=== PATIENT | female | born 1985 | race Caucasian/White ===

== ENCOUNTER → 2019-07-23 | Outpatient (CLI) | payer OTHER ==
[2019-07-23 14:28] LABS: BASO % 0.7 % (0.0-1.0); EOS # 0.1 10^3/uL (0.0-0.5); EOS % 1.4 % (0.0-3.0); HEMATOCRIT 37.4 % (36.0-47.0); HEMOGLOBIN 12.6 g/dl (12.0-15.5); LYMPH # 1.6 10^3/uL (1.5-5.0); LYMPH % 28.2 % (24.0-44.0); MEAN CORPUSCULAR HEMOGLOBIN 30.3 pg (27.0-33.0); MEAN CORPUSCULAR HGB CONC 33.7 g/dl (32.0-36.5); MEAN CORPUSCULAR VOLUME 89.9 fl (80.0-96.0); MONO # 0.5 10^3/uL (0.0-0.8); MONO % 9.5 % (0.0-5.0); NEUTROPHILS # 3.3 10^3/uL (1.5-8.5); NEUTROPHILS % 59.7 % (36.0-66.0); PLATELET COUNT, AUTOMATED 264 10^3/uL (150-450); RED BLOOD COUNT 4.16 10^6/uL (4.00-5.40); WHITE BLOOD COUNT 5.6 10^3/uL (4.0-10.0)
[2019-07-23 15:04] LABS: ALT/SGPT 22 U/L (12-78); BILIRUBIN,TOTAL 0.7 MG/DL (0.2-1.0); BLOOD UREA NITROGEN 10 MG/DL (7-18); CALCIUM LEVEL 8.8 MG/DL (8.5-10.1); CARBON DIOXIDE LEVEL 27 MEQ/L (21-32); CHLORIDE LEVEL 106 MEQ/L (98-107); CREATININE FOR GFR 0.65 MG/DL (0.55-1.30); FREE T4 1.04 NG/DL (0.76-1.46); GLOMERULAR FILTRATION RATE > 60.0 (>60); GLUCOSE, FASTING 75 MG/DL (70-100); POTASSIUM SERUM 3.9 MEQ/L (3.5-5.1); SODIUM LEVEL 137 MEQ/L (136-145); THYROID STIMULATING HORMONE 0.568 uIU/ML (0.358-3.740); TOTAL 25(OH) VITAMIN D 15.7 NG/ML (30.0-100.0); TOTAL PROTEIN 7.4 GM/DL (6.4-8.2); VITAMIN B12 LEVEL 555 PG/ML
[2019-07-23 15:24] LABS: FOLATE 16.9 NG/ML
== END ==
LOC: M LRY 11:25
PROVIDERS: ATTEND Physician Assistant
DX: Z13.29 Encounter for screening for other suspected endocrine disorder (principal)

== ENCOUNTER → 2019-09-12 | Outpatient (CLI) | payer OTHER ==
--- NOTE | 2019-09-12 14:25 | REP ---
REASON FOR EXAM: Status post posterior fusion L5 and S1. COMPARISON: 05/30/2019 without bending views. Vertebral body height and alignment is unchanged. The disc spaces are unchanged. Posterior fixation again seen with transpedicular screws seen bilaterally at L5 and S1, unchanged. There is an unchanged L5-S1 disc spacer. The bending views show no significant change in alignment. IMPRESSION: Postoperative changes and findings as described above. Electronically Signed by Chai Sanches DO 09/12/2019 04:10 P
== END ==
LOC: M LRY 12:41
PROVIDERS: ATTEND Physician Assistant
DX: M54.5 Low back pain (principal); Z98.1 Arthrodesis status

== ENCOUNTER → 2019-11-21 | Outpatient (CLI) | payer OTHER ==
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
== END ==
LOC: M PAIN 14:45
PROVIDERS: ATTEND Anesthesiology
DX: M96.1 Postlaminectomy syndrome, not elsewhere classified (principal); M43.06 Spondylolysis, lumbar region

== ENCOUNTER → 2020-03-04 | Outpatient (CLI) | payer OTHER ==
--- NOTE | 2020-03-08 14:12 | ECWPNPC ---
PATIENT NAME: GORDY SRIVASTAVA : 1985 GENDER: FEMALE VISIT DATE: 03/04/2020 DISCHARGE DATE: 03/04/20 1012 VISIT LOCKED DATE TIME: PHYSICIAN: HERBERTH ERWIN RESOURCE: HERBERTH ERWIN REASON FOR APPOINTMENT 1. BACK PAIN HISTORY OF PRESENT ILLNESS DEPRESSION SCREENING: PHQ-2 (2015 EDITION) LITTLE INTEREST OR PLEASURE IN DOING THINGS?NOT AT ALL FEELING DOWN, DEPRESSED, OR HOPELESS?NOT AT ALL TOTAL SCORE0 34-YEAR-OLD FEMALE IN FOR CHRONIC PAIN FOLLOW-UP. SHE FEELS HER MEDICATIONS ARE HELPFUL AND DENIES MED SIDE EFFECTS AT THIS TIME. SHE RATES HER PAIN CURRENTLY AT AN 8 OUT OF 10 AND DESCRIBES IT ACHING. GENERAL: -. FALL RISK SCREENING: SCREENING :NO FALLS REPORTED IN THE LAST YEAR PAIN SCREENING: PATIENT HAS A COMPLAINT OF ACUTE OR CHRONIC PAIN :YES LOCATION OF PAIN:LOW BACK INTENSITY OF PAIN (SCALE OF 1 TO 10):8 WHAT DOES YOUR PAIN FEEL LIKE:ACHING DURATION:CONTINOUS, AWAKENS FROM SLEEP PAIN IS INCREASED BY:ACTIVITIES PAIN IS DECREASED BY:USE OF PAIN MEDICATIONS NURSING NOTE: -. PAIN CENTER INTAKE QUESTIONS: DO YOU HAVE A HISTORY OF MRSA? :NO DO YOU TAKE A BLOOD THINNERS? :NO DO YOU HAVE ANY BLEEDING DISORDERS? :NO ANY NEW NUMBNESS OR WEAKNESS IN YOUR LEGS OR ARMS? :NO ANY PACEMAKER,DEFIBRILLATOR, OR DORSAL COLUMN STIMULATOR? :NO DO YOU HAVE ANY RASHES OR OPEN SORES? :NO ARE YOU ALLERGIC TO IV DYE? :NO ARE YOU DIABETIC? :NO ANY NEW PROBLEMS WITH YOUR MEDICATIONS? :NO HAVE YOU RECEIVED A VACCINE IN THE PAST 30 DAYS? :NO DO YOU PLAN TO RECEIVE A VACCINE IN THE NEXT 21 DAYS? :NO DO YOU NEED ANY PRESCRIPTION? :NO DO YOU TAKE ANY IMMUNOSUPPRESSIVE MEDICATIONS? :NO IS THERE A CHANCE YOU COULD BE ? :NO ARE YOU BREAST FEEDING? :NO CURRENT MEDICATIONS TAKING LEXAPRO 20 MG TABLET 1 TABLET ORALLY ONCE A DAY TAKING VITAMIN D (ERGOCALCIFEROL) 50 MCG (2000 UT) CAPSULE 1 CAPSULE ORALLY ONCE A DAY TAKING XANAX 0.5 MG TABLET 1 TABLET ORALLY ONCE DAILY NEEDED TAKING TIZANIDINE HCL 2 MG TABLET 1 TABLET NEEDED ORALLY BEFORE BEDTIME MAY REPEAT IN 4 HRS MDD 2 TAKING HYDROCODONE-ACETAMINOPHEN 5-325 MG TABLET 1 TABLET NEEDED ORALLY FOR PAIN EVERY 8 HRS MDD 3 NOT-TAKING AMOXICILLIN-POT CLAVULANATE 875-125 MG TABLET 1 TABLET ORALLY EVERY 12 HRS MEDICATION LIST REVIEWED AND RECONCILED WITH THE PATIENT PAST MEDICAL HISTORY PANIC ATTACKS CROHNS DISEASE ALLERGIES MUSCLE RELAXERS: FATIGUE - SIDE EFFECTS SURGICAL HISTORY PARTIAL DISCECTOMY 2007 SPINAL FUSION - L5-S1 2018 FAMILY HISTORY FATHER: ALIVE MOTHER: ALIVE 1 SISTER(S) - HEALTHY. 1 SON(S) , 1 DAUGHTER(S) - HEALTHY. SOCIAL HISTORY GENERAL: TOBACCO USE ARE YOU A:NONSMOKER LATEX QUESTIONNAIRE LATEX ALLERGY : HAVE YOU EVER DEVELOPED ANY TYPE OF REACTION AFTER HANDLING LATEX PRODUCTS SUCH RUBBER GLOVES, CONDOMS, DIAPHRAGMS, BALLOONS, SOCKS, OR UNDERWEAR?NO LATEX ALLERGY : HAVE YOU EVER DEVELOPED ANY TYPE OF REACTION DURING OR AFTER DENTAL APPOINTMENT, VAGINAL/RECTAL EXAMINATION, SURGICAL PROCEDURE, OR ANY OTHER EXPOSURE?NO LATEX RISK : HAVE YOU EVER HAD ANY DIFFICULTY BREATHING OR HIVES AFTER EATING OR HANDLING ANY FRUITS, OR VEGETABLES; SUCH KIWI, BANANAS, STONE FRUITS, OR CHESTNUTSNO LATEX RISK : DO YOU HAVE A PREVIOUS PERSONAL HISTORY OF MORE THAN NINE SURGERIES, SPINA BIFIDA, OR REPEATED CATHERIZATIONS? NO LATEX RISK : ARE YOU FREQUENTLY EXPOSED TO LATEX PRODUCTS IN YOUR OCCUPATION?NO DATE ASKED : 03/04/2020 ALCOHOL SCREENING DID YOU HAVE A DRINK CONTAINING ALCOHOL IN THE PAST YEAR?NO POINTS0 INTERPRETATIONNEGATIVE RECREATIONAL DRUG USE DRUG USE?NO LANGUAGE LANGUAGES SPOKEN:KINYARWANDA LEARNING BARRIERS / SPECIAL NEEDS BARRIERS TO LEARNING?NO HEARING IMPAIRED?NO VISION IMPAIRED?NO COGNITIVELY IMPAIRED?NO READINESS TO LEARN?YES LEARNING PREFERENCES?NO LEARNING CAPABILITIES PRESENT?YES EMOTIONAL BARRIERS?NO SPECIAL DEVICES?NO CARGO ROUTER NEEDED?NO DOMESTIC VIOLENCE DO YOU FEEL SAFE IN YOUR ENVIRONMENT?YES PAIN CLINIC PFS, CLERGY, PUBLIC HEALTH REFERRALS HAS THE PATIENT BEEN EDUCATED REGARDING HIS/HER PLAN OF CARE?YES HAS THE PATIENT BEEN EDUCATED REGARDING PAIN, THE RISK FOR PAIN, THE IMPORTANCE OF EFFECTIVE PAIN MANAGEMENT, AND THE PAIN ASSESSMENT PROCESS?YES ADVANCE DIRECTIVE ADVANCE DIRECTIVE DISCUSSED WITH PATIENT:YES PT STATES THAT SHE DOES NOT HAVE HCP, PATIENT GIVEN HEALTH CARE PROXY INFO PACKET TO TAKE HOME. 03/04/2020 - DM HOSPITALIZATION/MAJOR DIAGNOSTIC PROCEDURE NO HOSPITALIZATION HISTORY. REVIEW OF SYSTEMS CONSTITUTIONAL: ANY RECENT FEVER NO . CHILLS NO . WEIGHT CHANGE OF UNKNOWN REASONS NO . GASTROENTEROLOGY: NEW UNEXPLAINABLE CHANGES IN BOWEL CONTROL NO . CONSTIPATION NO . GENITOURINARY: ANY NEW CHANGE IN BLADDER CONTROL? NO . NEUROLOGY: NEW ONSET DIZZINESS OR NEUROLOGICAL CHANGES NOT MENTIONED NO . NEW NUMBNESS OR PAIN PATTERNS NOT MENTIONED AND PERTINENT TO TODAY'S VISIT NO . CARDIOLOGY: NEW CHEST PRESSURE NO . NEW CHEST PAIN NO . RESPIRATORY: UNEXPLAINABLE COUGH NO . NEW SHORTNESS OF BREATH NO . VITAL SIGNS WT 149.0 LBS, HT 60 IN, BMI 29.10 INDEX, BP 116/70 MM HG, HR 70 /MIN, RR 18 /MIN, TEMP 98.1 F, OXYGEN SAT % 98%, SAFE IN ENV? (Y/N) YES, NA INITIALS AW 0943, REVIEWED BY: OCTAVIO. EXAMINATION GENERAL EXAMINATION: GENERALNO ACUTE DISTRESS, WELL NOURISHED AND HYDRATED. PSYCHAPPROPRIATE MOOD AND AFFECT . LUNGS:CLEAR TO AUSCULTATION BILATERALLY, NO WHEEZES, RHONCHI, RALES. HEART:NO MURMURS, REGULAR RATE AND RHYTHM. ASSESSMENTS LUMBAR POST-LAMINECTOMY SYNDROME - M96.1 (PRIMARY) TREATMENT LUMBAR POST-LAMINECTOMY SYNDROME NOTES: DISCUSSED CARE PLAN WITH PATIENT, PATIENT VERBALIZES UNDERSTANDING. PATIENT WAS SENT HOME WITH A HEALTHCARE PROXY INFORMATION PACKET. -TIERNEY ALVARADO CMA . CLINICAL NOTES: 34-YEAR-OLD FEMALE IN FOR CHRONIC PAIN FOLLOW-UP. GIVEN PRESENTING SYMPTOMS RECOMMENDED CONTINUATION OF CURRENT MEDICATION REGIMEN WITH FOLLOW-UP IN 3 MONTHS. THC DISCUSSED WITH PATIENT AND SHE WAS INFORMED THAT THIS CANNOT BE SEEN ON HER U TOX AND PATIENT HAS EXPRESSED UNDERSTANDING. PATIENT HAS EXPRESSED UNDERSTANDING OF AND WAS IN AGREEMENT WITH TREATMENT PLAN. GIVEN TIME TO ASK QUESTIONS AND EXPRESS CONCERNS. , ISTOP REGISTRY REVIEWED AND DEMONSTRATES COMPLLIANCE. (REF # [id number] ) BRINGS IN MEDICATIONS WHICH IS APPROPRIATE FOR WHAT WAS DISPENSED. RECENT URINE TOXICOLOGY REVIEWED. NO UNAUTHORIZED MEDICATIONS. NO ILLICIT SUBSTANCES AND PRESCRIBED MEDICATIONS WERE PRESENT. PROCEDURE CODES FA211 ESTABILISHED PATIENT [facility] FACILITY CHARGE DISPOSITION & COMMUNICATION FOLLOW UP 3 MONTHS (REASON: CHRONIC BACK PAIN) ELECTRONICALLY SIGNED BY BOUCHRA LEACH ON 03/08/2020 AT 10:27 AM EDT DISCLAIMER : THIS IS A VISIT SUMMARY EXTRACTED FROM THE [employer] CHART. IT IS NOT A COPY OF THE [employer] PROGRESS NOTE. MONIQUE
== END ==
LOC: M PAIN 09:30
PROVIDERS: ATTEND Family Medicine
DX: M96.1 Postlaminectomy syndrome, not elsewhere classified (principal); Z86.59 Personal history of other mental and behavioral disorders; Z88.8 Allergy status to other drugs, medicaments and biological substances; Z79.899 Other long term (current) drug therapy

== ENCOUNTER → 2020-06-29 | Outpatient (REF) | payer OTHER | LOC: M PLALAB 15:15 | PROVIDERS: ATTEND Advanced Practice Midwife | DX: O36.80X0 Pregnancy with inconclusive fetal viability, not applicable or unspecified (principal) ==

== ENCOUNTER 2020-07-05 11:35 | Emergency (ER) | payer OTHER ==
[~2020-07-05] VITALS: Ht 152.4 cm; Wt 65.4 kg
--- OUTSIDE RECORDS SUMMARY | 2020-07-05 11:44 | CCD | Continuity of Care Document ---
Author Author Radha SANCHEZ Organization Unknown Address [place] [address] Phone [phone] Care Team Providers Care Physical Testing Supervisor Name Role Phone Otilia Euceda D.O. AUTM Micah Prince MD AUTM [phone] Trenton Coker MD AUTM [phone] Problems Active Problems Provider Date Crohn's disease of small AND large intestines CASEY Quintero Onset: 05/21/2019 Lumbar spine ankylosis CASEY Gan Onset: 05/21/2019 Panic disorder without agoraphobia CASEY Gan Onset : 05/21/2019 Mild recurrent major depression CASEY Gan Onset: 0 05/21/2019 Social History Type Date Description Comments Sex Unknown Tobacco Use Start: Unknown End: Quit ETOH Use Denies alcohol use Tobacco Use Start: Unknown End: Unknown Patient is a former smoker Recreational Drug Use Denies Drug Use Exercise Type/Frequency Does not exercise Sun Exposure Does not use sunscreen Seat Belt/Car Seat Always uses seat belt Allergies, Adverse Reactions, Alerts Active Allergies Reaction Severity Comments Date Tramadol Hives 09/18/2019 Inactive Allergies NKDA 04/29/2019 Medications Active Medications SIG Qnty Indications Ordering Provide r Date Low Iron 27-0.8mg Tablets take one tablet by mouth daily. 90tabs Z3A.01 Vasquez KooOBolivar 05/27/2020 Sertraline HCL 50mg Tablets 1 by mouth every day 90tabs F33.0 Vasquez KooOBolivar 05/27 Vitamin D3 25mcg (1000 Ut) Capsule s 1 by mouth every day Unknown Vitamin B 12 500mcg Tablets 1 by mouth every day Unknown History Medications Tizanidine HCL 4mg Tablets 1 tablet by mouth every 8 hours as needed for pain/ spasms Flores alesha Euceda D.O. 05/27/2020 - 05/27/2020 Tizanidine HCL 2mg Capsules take one tablet by mouth every 8 hours as needed for muscle spasm Linacaps Otilia Nathaly Padilla D.O. 01/21/2020 - 05/27/2020 Immunizations Description No Information Available Vital Signs Date Vital Result Comment 05/27/2020 10:32am BP Systolic 122 mmHg BP Diastolic 82 mmHg Height 61 inches 5'1" Weight 140.25 lb BMI (Body Mass Index) 26.5 kg/m2 Heart Rate 81 /min Respiratory Rate 18 /min Body Temperature 99.1 F O2 % BldC Oximetry 98 % [place] Body Weight 105 lb 01/21/2020 9:54am BP Systolic 108 mmHg BP Diastolic 80 mmHg Height 61 inches 5'1" Weight 143.38 lb BMI (Body Mass Index) 27.1 kg/m2 Heart Rate 63 /min Respiratory Rate 16 /min Body Temperature 98.5 F O2 % BldC Oximetry 100 % [place] Body Weight 105 lb Results Test Acquired Date Facility Test Result H/L Range Note Laboratory test finding 05/27/2020 Inhouse Inhouse Urine positive Procedures Description No Information Available Medical Devices Description No Information Available Encounters Type Date Location Provider Dx Diagnosis Office Visit 05/27/2020 10:20a [facility] CASEY Gan Z3A.01 Less than 8 weeks gestation of Z33.1 state, incidental M43.26 Fusion of spine, lumbar bonnie on F33.0 Major depressive disorder, r ecurrent, mild Office Visit 01/21/2020 9:30a [facility] CASEY Gan M43.26 Fusion of spine, lumbar bonnie on F33.0 Major depressive disorder, r ecurrent, mild F41.0 Panic disorder [episodic par oxysmal anxiety] K50.80 Crohn's disease of both smal l and lg int w/o complications Assessments Date Code Description Provider 05/27/2020 Z3A.01 Less than 8 weeks gestation of alcides he CASEY Gan 05/27/2020 Z33.1 state, incidental Jagdish CASEY Weaver 05/27/2020 M43.26 Fusion of spine, lumbar region M CASEY Capps 05/27/2020 F33.0 Major depressive disorder, recur rent, mild CSAEY Gan 01/21/2020 M43.26 Fusion of spine, lumbar region M CASEY Capps 01/21/2020 F33.0 Major depressive disorder, recur rent, mild CASEY Gan 01/21/2020 F41.0 Panic disorder [episodic paroxys mal anxiety] CASEY Gan 01/21/2020 K50.80 Crohn's disease of b oth small and large intestine without complications CASEY Gan Plan of Treatment Future Appointment(s):* 07/20/2020 10:20 am - CASEY Gan at [facility] Functional Status Description No Information Available Mental Status Description No Information Available Referrals Refer to Reason for Referral Status Appt Date Trenton Coker MD A2. LMP is 04/26/20. She is looking to establish follow up OB care. [facility] [address] [place] [id number] [phone]
--- OUTSIDE RECORDS SUMMARY | 2020-07-05 11:44 | CCD | Continuity of Care Document ---
Author Author Radha SANCHEZ Organization Unknown [place] [address] Phone [phone] Care Team Providers Care Corn Grinder Name Role Phone Otilia Euceda D.O. AUTM [phone] Micah Prince MD AUTM [phone] Trenton Coker MD AUTM [phone] Problems Active Problems Provider Date Crohn's disease [...] Available Vital Signs Date Vital Result Comment 06/04/2020 11:28am BP Systolic 124 mmHg BP Diastolic 78 mmHg Height 61 inches 5'1" Weight 141.00 lb BMI (Body Mass Index) 26.6 kg/m2 Heart Rate 82 /min Respiratory Rate 16 /min Body Temperature 98.8 F O2 % BldC Oximetry 99 % [place] Body Weight 105 lb 05/27/2020 10:32am BP Systolic 122 mmHg BP Diastolic 82 mmHg Height 61 inches 5'1" Weight 140.25 lb BMI (Body Mass Index) 26.5 kg/m2 Heart Rate 81 /min Respiratory Rate 18 /min Body Temperature 99.1 F O2 % BldC Oximetry 98 % [place] Body Weight 105 lb Results Test Acquired Date Facility Test Result H/L Range Note Laboratory test finding 05/27/2020 Inhouse Inhouse Urine positive Procedures Description No Information Available Medical Devices Description No Information Available Encounters Type Date Location Provider Dx Diagnosis Office Visit 05/27/2020 10:20a [facility] CASEY Swift Z3A.01 Less than 8 weeks gestation of Z33.1 state, incidental M43.26 Fusion of spine, lumbar bonnie on F33.0 Major depressive disorder, r ecurrent, mild Office Visit 01/21/2020 9:30a [facility] CASEY Gan M43.26 Fusion of spine, lumbar bonnie on F33.0 Major depressive disorder, r ecurrent, mild F41.0 Panic disorder [episodic par oxysmal anxiety] K50.80 Crohn's disease of both smal l and lg int w/o complications Assessments Date Code Description Provider 06/04/2020 Z01.818 Encounter for other preprocedura l examination CASEY Gan 06/04/2020 K02.3 Arrested dental caries CASEY Huerta 05/27/2020 Z3A.01 Less than 8 weeks gestation of alcides he CASEY Gan 05/27/2020 Z33.1 state, incidental Jagdish CASEY Weaver 05/27/2020 M43.26 Fusion of spine, lumbar region M CASEY Capps 05/27/2020 F33.0 Major depressive disorder, recur rent, mild CASEY Gan 01/21/2020 M43.26 Fusion of spine, lumbar region M CASEY Cpaps 01/21/2020 F33.0 Major depressive disorder, recur rent, mild CASEY Gan 01/21/2020 F41.0 Panic disorder [episodic paroxys mal anxiety] CASEY Gan 01/21/2020 K50.80 Crohn's disease of b oth small and large intestine without complications CASEY Gan Plan of Treatment Future Appointment(s):* 07/20/2020 10:20 am - CASEY Gan at [facility] 06/04/2020 - CASEY Gan* Z01.818 Encounter for other preprocedural examination * K02.3 Arrested dental caries Functional Status Description No Information Available Mental Status Description No Information Available Referrals Refer to Dr Reason for Referral Status Appt Date Trenton Coker MD A2. LMP is 04/26/20. She is looking to establish follow up OB care. [facility] [address] [place] [address] [phone]
--- OUTSIDE RECORDS SUMMARY | 2020-07-05 11:44 | CCD ---
Author Author [facility] Organization [facility] Address Unknown Phone Unavailable Care Team Providers Care Blood Typer Name Role Phone Daniel Garcia Unavailable PROBLEMS Type Condition ICD9-CM Code ZXO48-ES Code Onset Dates Condition S tatus SNOMED Code Notes Problem Lumbar post-laminectomy syndrome M96.1 Active 855426866 Problem Lumbar Facet arthropathy M47.816 Active 3677726 08 Problem Lumbar spondylolysis M43.06 Active 604834044 ALLERGIES Allergen (clinical drug ingredient) Drug/Non Drug Allergy do cumented on EMR Reaction Allergy Type Onset Date Status MUSCLE RELAXERS FATIGUE Non Drug Allergy Act eric ENCOUNTERS from 1985 to 2020-04-19 Encounter Location Date Provider Diagnosis [facility] [address] [place] [phone] Apr, Daniel Jose IMMUNIZATIONS No Information SOCIAL HISTORY Tobacco Use: Social History Observation Description Date Details (start date - stop date) Never Smoker Sex Assigned At : Social History Observation Description Sex Assigned At Unknown Language: Question Answer Notes Languages spoken: Croatian Alcohol Screening: Question Answer Notes Did you have a drink containing alcohol in the past year? No Points 0 Interpretation Negative Tobacco Use: Question Answer Notes Are you a: never smoker REASON FOR REFERRAL No Information VITAL SIGNS No information MEDICATIONS Medication SIG (Take, Route, Frequency, Duration) Notes Start Da te End Date Status Lexapro 20 MG 1 tablet Orally Once a day for 30 day(s) Active Xanax 0.5 MG 1 tablet Orally once daily as needed Active Vitamin D (Ergocalciferol) 50 MCG (1999 [place]) 1 capsule Orally Once a day for 30 day(s) Active Tizanidine HCl 2 MG 1 tablet as needed Orally be fore bedtime May repeat in 4 hrs MDD 2 for 30 days Nov, Active Hydrocodone-Acetaminophen 5-325 MG 1 tablet as needed Orally for pain every 8 hrs MDD 3 for 30 days Apr, Active Amoxicillin-Pot Clavulanate 875-125 MG 1 tablet Orally every 12 hrs for 10 day(s) Apr, Not-Taking PROCEDURES No Information RESULTS No Results REASON FOR VISIT refill hydrocodone MEDICAL (GENERAL) HISTORY Type Description Date Medical History PANIC ATTACKS Medical History CROHNS DISEASE Surgical History PARTIAL DISCECTOMY 2006 Surgical History SPINAL FUSION - L5-S1 2018 Goals Section No Information Health Concerns No Information MEDICAL EQUIPMENT No Information MENTAL STATUS No Information FUNCTIONAL STATUS No Information ASSESSMENTS No Information PLAN OF TREATMENT Medication Medication Name Sig Start Date Stop Date Hydrocodone-Acetaminophen 5-325 MG 1 tablet as needed Orally for pain every 8 hrs MDD 3 for 30 days Apr, Next Appt Details Provider Name:Daniel Garcia, 2020-06-10 09:30:00 AM, [address] [place], [address], Insurance Providers Payer Name Payer Address Payer Phone Insured Name Patient Relati onship to Insured Coverage Start Date Coverage End Date [place] [phone] GORDY SRIVASTAVA
--- OUTSIDE RECORDS SUMMARY | 2020-07-05 11:44 | CCD ---
Author Author [facility] Organization [facility] Address Unknown Phone Unavailable Care Team Providers Care Certified Wellness Program Manager Name Role Phone Daniel Garcia Unavailable PROBLEMS Type Condition ICD9-CM Code HSQ21-PM Code Onset Dates Condition S tatus SNOMED Code Notes Problem Lumbar post-laminectomy syndrome M96.1 Active 971843291 Problem Lumbar Facet arthropathy M47.816 Active 0281585 08 Problem Lumbar spondylolysis M43.06 Active 314064496 ALLERGIES Allergen (clinical drug ingredient) Drug/Non Drug Allergy do cumented on EMR Reaction Allergy Type Onset Date Status MUSCLE RELAXERS FATIGUE Non Drug Allergy Act eric ENCOUNTERS from 1985 to 2020-06-05 Encounter Location Date Provider Diagnosis [facility] [address] [place] [phone] May, Daniel Garcia IMMUNIZATIONS No Information SOCIAL HISTORY Tobacco Use: Social History Observation Description Date Details (start date - stop date) Never Smoker Sex Assigned At : Social History Observation Description Sex Assigned At Unknown Language: Question Answer Notes Languages spoken: Mohawk Alcohol Screening: Question Answer Notes Did you [...] 8 hrs MDD 3 for 30 days May, Active Amoxicillin-Pot Clavulanate 875-125 MG 1 tablet Orally every 12 hrs for 10 day(s) Apr, Not-Taking PROCEDURES No Information RESULTS No Results REASON FOR VISIT MEDS/ MEDICAL (GENERAL) HISTORY Type Description Date Medical [...] 8 hrs MDD 3 for 30 days May, Next Appt Details Provider Name:Daniel Garcia, 2020-06-10 09:30:00 AM, [address] [place], [address], Provider Name:Stefania Diallo, 2020-06-29 02:20:00 PM, [address] [place], [address], Insurance Providers Payer Name Payer Address Payer Phone Insured Name Patient Relati onship to Insured Coverage Start Date Coverage End Date [place] [phone] GORDY SRIVASTAVA
--- OUTSIDE RECORDS SUMMARY | 2020-07-05 11:44 | CCD ---
Author Author [facility] Organization [facility] Address Unknown Phone Unavailable Care Team Providers Care Manager Group Home Name Role Phone Daniel Garcia Unavailable PROBLEMS Type Condition ICD9-CM Code TTQ35-JP Code Onset Dates Condition S tatus SNOMED Code Notes Problem Lumbar post-laminectomy syndrome M96.1 Active 143298498 Problem Lumbar Facet arthropathy M47.816 Active 4722211 08 Problem Lumbar spondylolysis M43.06 Active 069257769 ALLERGIES Allergen (clinical drug ingredient) Drug/Non Drug Allergy do cumented on EMR Reaction Allergy Type Onset Date Status MUSCLE RELAXERS FATIGUE Non Drug Allergy Act eric ENCOUNTERS from 1985 to 2020-05-19 Encounter Location Date Provider Diagnosis [facility] [address] [place] [phone] May, Daniel Garcia IMMUNIZATIONS No Information SOCIAL [...] Information RESULTS No Results REASON FOR VISIT Vicodin Refill MEDICAL (GENERAL) HISTORY Type Description Date Medical [...] days May, Next Appt Details Provider Name:Daniel Pan Jose, 2020-06-10 09:30:00 AM, [address] [place], [address], Insurance Providers Payer Name Payer Address Payer Phone Insured Name Patient Relati onship to Insured Coverage Start Date Coverage End Date [address] [phone] GORDY SRIVASTAVA
--- OUTSIDE RECORDS SUMMARY | 2020-07-05 11:44 | CCD | Continuity of Care Document ---
Author Author Radha SANCHEZ Organization Unknown [place] [address] Phone [phone] Care Team Providers Care Assistant Winemaker Name Role Phone Otilia Euceda D.O. AUTM Micah Prince MD AUTM [phone] Trenton Coker MD AUTM [phone] Problems Active Problems Provider Date Crohn's disease [...] hours as needed for pain/ spasms Flores Euceda D.O. 05/27/2020 - 05/27/2020 Tizanidine HCL 2mg Capsules take one tablet by mouth every 8 hours as needed for muscle spasm 90caps Otilia Nathaly Padilla D.O. 01/21/2020 - 05/27/2020 Immunizations Description No Information Available Vital Signs Date Vital Result Comment 06/04/2020 11:28am BP Systolic 124 mmHg BP Diastolic 78 mmHg Height 61 inches 5'1" Weight 141.00 lb BMI (Body Mass Index) 26.6 kg/m2 Heart Rate 82 /min Respiratory Rate 16 /min Body Temperature 98.8 F O2 % BldC Oximetry 99 % [place] Body Weight 105 lb 05/27/2020 10:32am BP Systolic 122 mmHg BP Diastolic 82 mmHg Height 61 inches 5'1" Weight 140.25 lb BMI (Body Mass Index) 26.5 kg/m2 Heart Rate 81 /min Respiratory Rate 18 /min Body Temperature 99.1 F O2 % BldC Oximetry 98 % [place] Body Weight 105 lb Results Test Acquired Date Facility Test Result H/L Range Note Laboratory test finding 05/27/2020 Inhouse Inhouse Urine positive Procedures Description No Information Available Medical Devices Description No Information Available Encounters Type Date Location Provider Dx Diagnosis Office Visit 06/04/2020 11:30a [facility] CASEY Gan Z01.818 Encounter for other preproce dural examination K02.3 Arrested dental caries Z3A.01 Less than 8 weeks gestation of Z33.1 state, incidental Office Visit 05/27/2020 10:20a [facility] CASEY Gan Z3A.01 Less than 8 weeks gestation of Z33.1 state, incidental M43.26 Fusion of spine, lumbar bonnie on F33.0 Major depressive disorder, r ecurrent, mild Office Visit 01/21/2020 9:30a [facility] CASEY Gan M43.26 Fusion of spine, lumbar bonnie on F33.0 Major depressive disorder, r ecurrent, mild F41.0 Panic disorder [episodic par oxysmal anxiety] K50.80 Crohn's disease of both smal l and lg int w/o complications Assessments Date Code Description Provider 06/04/2020 Z01.818 Encounter for other preprocedura l examination CASEY Gan 06/04/2020 K02.3 Arrested dental caries CASEY Huerta 06/04/2020 Z3A.01 Less than 8 weeks gestation of p CASEY Marvin 06/04/2020 Z33.1 state, incidental CASEY Patel 05/27/2020 Z3A.01 Less than 8 weeks gestation of CASEY Guillen 05/27/2020 Z33.1 state, incidental CASEY Patel 05/27/2020 M43.26 Fusion of spine, lumbar region CASEY Saucedo 05/27/2020 F33.0 Major depressive disorder, recur rent, mild CASEY Gan 01/21/2020 M43.26 Fusion of spine, lumbar region CASEY Saucedo 01/21/2020 F33.0 Major depressive disorder, recur rent, mild CASEY Gan 01/21/2020 F41.0 Panic disorder [episodic paroxys mal anxiety] CASEY Gan 01/21/2020 K50.80 Crohn's disease of b oth small and large intestine without complications CASEY Gan Plan of Treatment Future Appointment(s):* 07/20/2020 10:20 am - CASEY Gan at [facility] 06/04/2020 - CASEY Gan* Z01.818 Encounter for other preprocedural examination* Comments:* Radha has dental caries which require removal due to pain and risk of infection. She is in her first trimester but is otherwise healthy and should not be any risk by having a local numbing agent and removal of dental ada. She is a low surgical risk and is cleared for planned procedure. * K02.3 Arrested dental caries* Comments:* Cleared to have dental ada removed. * Z3A.01 Less than 8 weeks gestation of * Comments:* Continue with OB care as scheduled, uncomplicated thus far. * Z33.1 state, incidental Functional Status Description No Information Available Mental Status Description No Information Available Referrals Refer to Reason for Referral Status Appt Date Trenton Coker MD A2. LMP is 04/26/20. She is looking to establish follow up OB care. [facility] [address] [place] [address] [phone]
--- OUTSIDE RECORDS SUMMARY | 2020-07-05 11:44 | CCD | Continuity of Care Document ---
Author Author Radha SANCHEZ Organization Unknown Address [place] [address] Phone [phone] Care Team Providers Care Attending Pathologist Name Role Phone Otilia Euceda D.O. AUTM Micah Prince MD AUTM [phone] Trenton Coker MD AUTM [phone] Problems Active Problems Provider Date Crohn's disease [...] F O2 % BldC Oximetry 98 % [place] Body Weight 105 lb 01/21/2020 9:54am BP Systolic 108 mmHg BP Diastolic 80 mmHg Height 61 inches 5'1" Weight 143.38 lb BMI (Body Mass Index) 27.1 kg/m2 Heart Rate 63 /min Respiratory Rate 16 /min Body Temperature 98.5 F O2 % BldC Oximetry 100 % [place] Body Weight 105 lb Results Test Acquired Date Facility Test Result H/L Range Note Laboratory test finding 05/27/2020 Inhouse Inhouse Urine positive Procedures Description No Information Available Medical Devices Description No Information Available Encounters Type Date Location Provider Dx Diagnosis Office Visit 05/27/2020 10:20a [facility] CASEY Gan Z3A.01 Less than 8 weeks gestation of Z33.1 state, incidental M43.26 Fusion of spine, lumbar bonnie on F33.0 Major depressive disorder, r ecurrent, mild Office Visit 01/21/2020 9:30a [facility] CASEY Gan M43.26 Fusion of spine, lumbar [...] 07/20/2020 10:20 am - CASEY Gan at [facility] Functional Status Description No Information Available Mental Status Description No Information Available Referrals Refer to Reason for Referral Status Appt Date Trenton Coker MD A2. LMP is 04/26/20. She is looking to establish follow up OB care. [facility] [address] [place] [address] [phone]
--- OUTSIDE RECORDS SUMMARY | 2020-07-05 11:44 | CCD ---
Author Author [facility] Organization [facility] Address Unknown Phone Unavailable Care Team Providers Care Log Rafter Name Role Phone Stefania Diallo Unavailable PROBLEMS Type Condition ICD9-CM Code UBW29-JR Code Onset Dates Condition S tatus W/U Status Risk SNOMED Code Notes Problem Lumbar Facet arthropathy M47.816 Active confirmed 835396213 Problem Supervision of other normal Z34.80 Ac tive confirm 844712846 Problem Lumbar spondylolysis M43.06 Active confirmed 811467340 Problem Lumbar post-laminectomy syndrome M96.1 Active conf irmed 724152787 ALLERGIES Allergen (clinical drug ingredient) Drug/Non Drug Allergy do cumented on EMR Reaction Allergy Type Onset Date Status MUSCLE RELAXERS FATIGUE Non Drug Allergy Act eric ENCOUNTERS from 1985 to 2020-07-03 Encounter Location Date Provider Diagnosis [facility] [address] [place] [address] Jun, Stefania Diallo with in conclusive viability O36.80X0 and Weeks of gestation of not specified Z3A.00 IMMUNIZATIONS No Information SOCIAL HISTORY Tobacco Use: Social History Observation Description Date Details (start date - stop date) Never Smoker Sex Assigned At : Social History Observation Description Sex Assigned At Unknown Language: Question Answer Notes Languages spoken: Anguillan Tobacco Use: Question Answer Notes Are you a: never smoker REASON FOR REFERRAL No Information VITAL SIGNS Weight 142.2 lbs Jun, Weight-kg 64.5 kg Jun, Height 60 in Jun, BMI 27.772 kg/m2 Jun, Blood pressure systolic 122 mm Hg Jun, Blood pressure diastolic 78 mm Hg Jun, MEDICATIONS Medication SIG (Take, Route, Frequency, Duration) Notes Start Da te End Date Status Amoxicillin-Pot Clavulanate 875-125 MG 1 tablet Orally every 12 hrs for 10 day(s) Apr, Not-Taking Tizanidine HCl 2 MG 1 tablet as needed Orally be fore bedtime May repeat in 4 hrs MDD 2 for 30 days Nov, Not-Taking Xanax 0.5 MG 1 tablet Orally once daily as needed Not-Taking Lexapro 20 MG 1 tablet Orally Once a day for 30 day(s) Not-Taking 27-1 MG 1 tablet Orally Once a day Active Vitamin D (Ergocalciferol) 50 MCG (1999) 1 capsule Orally Once a day for 30 day(s) Active Hydrocodone-Acetaminophen 5-325 MG 1 tablet as needed Orally for pain every 8 hrs MDD 3 for 30 days May, Not-Taking PROCEDURES No Information RESULTS No Results REASON FOR VISIT 1ST PN MEDICAL (GENERAL) HISTORY Type Description Date Medical History PANIC ATTACKS Medical History CROHNS DISEASE Medical History Chronic Back Pain Surgical History PARTIAL DISCECTOMY 2006 Surgical History SPINAL FUSION - L5-S1 2018 Surgical History Partial Colectomy 2009 Hospitalization History Childbirth Goals Section No Information Health Concerns No Information MEDICAL EQUIPMENT No Information MENTAL STATUS No Information FUNCTIONAL STATUS No Information ASSESSMENTS Encounter Date Diagnosis Assessment Notes Treatment Notes Treatm ent Clinical Notes Jun, with inconclusive viability (ICD -10 - O36.80X0) Jun, Weeks of gestation of not specified (I CD-10 - Z3A.00) PLAN OF TREATMENT Treatment Notes Test Name Order Date HCG, SERUM QUANTITATIVE 2020-06-29 Future Test Test Name Order Date HCG, SERUM QUANTITATIVE [id number] Next Appt Details 1 Week Reason:f/u sono Provider Name:Stefania Diallo, 2020-07-06 02:40:00 PM, [address] [place], [address], Follow Up:1 Weekf/u sono Insurance Providers Payer Name Payer Address Payer Phone Insured Name Patient Relati onship to Insured Coverage Start Date Coverage End Date [place] [id number] GORDY SRIVASTAVA self
--- OUTSIDE RECORDS SUMMARY | 2020-07-05 11:45 | CCD ---
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 Name Role Phone O'jacob, A Juan Francisco PA Unavailable Unavailable O'jacob, A Juan Francisco PA Unavailable Unavailable O'jacob, A Juan Francisco PA Unavailable Unavailable O'jacob, A Juan Francisco PA Unavailable Unavailable O'jacob, A Juan Francisco PA Unavailable Unavailable O'jacob, A Juan Francisco PA Unavailable Unavailable O'jacob, A Juan Francisco PA Unavailable Unavailable O'jacob, A Juan Francisco PA Unavailable Unavailable O'jacob, A Juan Francisco PA Unavailable Unavailable O'jacob, A Juan Francisco PA Unavailable Unavailable O'jacob, A Juan Francisco PA Unavailable Unavailable O'jacob, A Juan Francisco PA Unavailable Unavailable O'jacob, A Juan Francisco PA Unavailable Unavailable O'jacob, A Juan Francisco PA Unavailable Unavailable O'jacob, A Juan Francisco PA Unavailable Unavailable O'jacob, A Juan Francisco PA Unavailable Unavailable O'jacob, A Juan Francisco PA Unavailable Unavailable O'jacob, A Juan Francisco PA Unavailable Unavailable O'jacob, A Juan Francisco PA Unavailable Unavailable O'jacob, A Juan Francisco PA Unavailable Unavailable O'jacob, A Juan Francisco PA Unavailable Unavailable O'jacob, A Juan Francisco PA Unavailable Unavailable O'jacob, A Juan Francisco PA Unavailable Unavailable O'jacob, A Juan Francisco PA Unavailable Unavailable O'jacob, A Juan Francisco PA Unavailable Unavailable O'jacob, A Juan Francisco PA Unavailable Unavailable O'jacob, A Juan Francisco PA Unavailable Unavailable O'jacob, A Juan Francisco PA Unavailable Unavailable O'jacob, A Juan Francisco PA Unavailable Unavailable O'jacob, A Juan Francisco PA Unavailable Unavailable O'jacob, A Juan Francisco PA Unavailable Unavailable O'jacob, A Juan Francisco PA Unavailable Unavailable O'jacob, A Juan Francisco PA Unavailable Unavailable Felien T Rosetta PA Unavailable Unavailable Feola, T Rosetta PA Unavailable Unavailable Feola, T Rosetta PA Unavailable Unavailable Feola, T Rosetta PA Unavailable Unavailable Feola, T Rosetta PA Unavailable Unavailable Feola, T Rosetta PA Unavailable Unavailable Feola, T Rosetta PA Unavailable Unavailable Feola, T Rosetta PA Unavailable Unavailable Feola, T Rosetta PA Unavailable Unavailable Feola, T Rosetta PA Unavailable Unavailable Feola, T Rosetta PA Unavailable Unavailable Feola, T Rosetta PA Unavailable Unavailable Feola, T Rosetta PA Unavailable Unavailable Feola, T Rosetta PA Unavailable Unavailable Feola, T Rosetta PA Unavailable Unavailable Feola, T Rosetta PA Unavailable Unavailable Feola, T Rosetta PA Unavailable Unavailable Feola, T Rosetta PA Unavailable Unavailable Feola, T Rosetta PA Unavailable Unavailable Feola, T Rosetta PA Unavailable Unavailable Feola, T Rosetta PA Unavailable Unavailable Feola, T Rosetta PA Unavailable Unavailable Feola, T Rosetta PA Unavailable Unavailable Feola, T Rosetta PA Unavailable Unavailable Feola, T Rosetta PA Unavailable Unavailable Feola, T Rosetta PA Unavailable Unavailable Feola, T Rosetta PA Unavailable Unavailable Feola, T Rosetta PA Unavailable Unavailable Feola, T Rosetta PA Unavailable Unavailable Feola, T Rosetta PA Unavailable Unavailable Feola, T Rosetta PA Unavailable Unavailable Feola, T Rosetta PA Unavailable Unavailable Feola, T Rosetta PA Unavailable Unavailable Feola, T Rosetta PA Unavailable Unavailable Feola, T Rosetta PA Unavailable Unavailable Feola, T Rosetta PA Unavailable Unavailable Feola, T Rosetta PA Unavailable Unavailable Re-disclosure Warning The records that you are about to access may contain information from federally-assisted alcohol or drug abuse programs. If such information is present, then the following federally mandated warning applies: This information has been disclosed to you from records protected by federal confidentiality rules (42 CFR part 2). The federal rules prohibit you from making any further disclosure of this information unless further disclosure is expressly permitted by the written consent of the person to whom it pertains or as otherwise permitted by 42 CFR part 2. A general authorization for the release of medical or other information is NOT sufficient for this purpose. The Federal rules restrict any use of the information to criminally investigate or prosecute any alcohol or drug abuse patient.The records that you are about to access may contain highly sensitive health information, the redisclosure of which is protected by Article 27-F of the [facility] Public Health law. If you continue you may have access to information: Regarding HIV / AIDS; Provided by facilities licensed or operated by the [facility] Office of Mental Health; or Provided by the [facility] Office for People With Developmental Disabilities. If such information is present, then the following [facility] mandated warning applies: This information has been disclosed to you from confidential records which are protected by state law. State law prohibits you from making any further disclosure of this information without the specific written consent of the person to whom it pertains, or as otherwise permitted by law. Any unauthorized further disclosure in violation of state law may result in a fine or [place] health care facility sentence or both. A general authorization for the release of medical or other information is NOT sufficient authorization for further disc losure. Allergies and Adverse Reactions Type Description Substance Reaction Status Data Source(s ) Drug Allergy Drug Allergy NKDA [facility] ([facility]) Encounters Encounter Providers Location Date Indications Data Source(s ) ([facility]) [facility] OB Visit [address] [place] [address] 06/29/2020 12:00:00 AM EST eCW1 ([facility]) Outpatient Attender: Rosetta PEÑA 021 06:19:17 PM EST - 06/08/2020 07:20:39 PM EST DocuTap ([facility] ) Outpatient Attender: Juan Francisco PEÑA [facility] 06/04/2020 10:30:00 AM EST [facility] ([facility]) Unknown [address] [facility] [address] 06/01/2020 12:00:00 AM EST eCW1 ([facility]) Outpatient Attender: Juan Francisco PEÑA [facility] 05/27/2020 09:20:00 AM EST MED[facility] ([facility]) Unknown [address] [facility] [address] 05/18/2020 12:00:00 AM EST eCW1 ([facility]) Unknown [address] [facility] [address] 04/16/2020 12:00:00 AM EST eCW1 ([facility]) [place] [address] [facility] [address] 03/18/2020 12:00:00 AM EST eCW1 ([facility]) [place] [address] [facility] [address] 03/04/2020 12:00:00 AM EDT eCW1 ([facility]) [place] [address] [facility] [address] 02/18/2020 12:00:00 AM EDT eCW1 ([facility]) Outpatient Attender: Juan Francisco PEÑA [facility] 01/21/2020 09:30:00 AM EDT [facility] ([facility]) [place] [address] [facility] [address] 12/04/2019 12:00:00 AM EDT eCW1 ([facility]) [place] [address] [facility] [address] 11/21/2019 12:00:00 AM EDT eCW1 ([facility]) Outpatient Attender: Juan Francisco PEÑA [facility] 09/18/2019 02:00:00 PM EDT [facility] ([facility]) Outpatient Attender: Juan Francisco PEÑA [facility] 09/08/2019 01:00:00 PM EDT [facility] ([facility]) Outpatient Attender: Juan Francisco PEÑA [facility] 07/21/2019 10:00:00 AM EDT [facility] ([facility]) Outpatient 06/05/2019 02:05:00 PM EST [facility] Outpatient Attender: Juan Francisco PEÑA [facility] 05/21/2019 12:30:00 PM EST [facility] ([facility]) Medications Medication Brand Name Start Date Product Form Dose Route Admi nistrative Instructions Pharmacy Instructions Status Indications Reaction Description Data Source(s) Sertraline 50 MG Oral Tablet Sertraline HCL 05/27/2020 12:00:00 AM EST ORAL active [facility] ([facility]) [place] 05/27/2020 12:00:00 AM EST ORAL active [facility] ([facility]) tizanidine 4 MG Oral Tablet Tizanidine HCL 05/27/2020 12:00:00 AM EST ORAL completed [facility] ([facility]) Acetaminophen 325 MG / Hydrocodone Bobbi trate 5 MG Oral Tablet Hydrocodone- Acetaminophen 5-325 MG Hydrocodone-Acetaminophen 5-325 MG 05/18/2020 12:00:00 AM EST 1.0 {tablet_as_needed} suspended Hydrocodone-Acetaminophen 5-325 MG eCW1 ([facility]) Acetaminophen 325 MG / Hydrocodone Bobbi trate 5 MG Oral Tablet Hydrocodone- Acetaminophen 5-325 MG Hydrocodone-Acetaminophen 5-325 MG 05/18/2020 12:00:00 AM EST 1.0 {tablet_as_needed} active Hydrocodone-Acetaminophen 5-325 MG eCW1 ([facility]) Acetaminophen 325 MG / Hydrocodone Bobbi trate 5 MG Oral Tablet Hydrocodone- Acetaminophen 5-325 MG Hydrocodone-Acetaminophen 5-325 MG 05/18/2020 12:00:00 AM EST 1.0 {tablet_as_needed} active Hydrocodone-Acetaminophen 5-325 MG eCW1 ([facility]) Acetaminophen 325 MG / Hydrocodone Bobbi trate 5 MG Oral Tablet Hydrocodone- Acetaminophen 5-325 MG Hydrocodone-Acetaminophen 5-325 MG 04/19/2020 12:00:00 AM EST 1.0 {tablet_as_needed} active Hydrocodone-Acetaminophen 5-325 MG eCW1 ([facility]) Acetaminophen 325 MG / Hydrocodone Bobbi trate 5 MG Oral Tablet Hydrocodone- Acetaminophen 5-325 MG Hydrocodone-Acetaminophen 5-325 MG 03/20/2020 12:00:00 AM EST 1.0 {tablet_as_needed} active Hydrocodone-Acetaminophen 5-325 MG eCW1 ([facility]) Acetaminophen 325 MG / Hydrocodone Bobbi trate 5 MG Oral Tablet Hydrocodone- Acetaminophen 5-325 MG Hydrocodone-Acetaminophen 5-325 MG 02/18/2020 12:00:00 AM EDT 1.0 {tablet_as_needed} active Hydrocodone-Acetaminophen 5-325 MG eCW1 ([facility]) Acetaminophen 325 MG / Hydrocodone Bobbi trate 5 MG Oral Tablet Hydrocodone- Acetaminophen 5-325 MG Hydrocodone-Acetaminophen 5-325 MG 02/18/2020 12:00:00 AM EDT 1.0 {tablet_as_needed} active Hydrocodone-Acetaminophen 5-325 MG eCW1 ([facility]) tizanidine 2 MG Oral Capsule Tizanidine HCL 01/21/2020 12:00:00 AM EDT ORAL completed [facility] ([facility]) Acetaminophen 325 MG / Hydrocodone Bobbi trate 5 MG Oral Tablet Hydrocodone- Acetaminophen 5-325 MG Hydrocodone-Acetaminophen 5-325 MG 11/21/2019 12:00:00 AM EDT 1.0 {tablet_as_needed} active Hydrocodone-Acetaminophen 5-325 MG eCW1 ([facility]) tizanidine 2 MG Oral Tablet Tizanidine HCl 2 MG Tizanidine H Cl 2 MG 11/21/2019 12:00:00 AM EDT 1.0 {tablet_as_needed} active Tizanidine HCl 2 MG eCW1 ([facility]) Acetaminophen 325 MG / Hydrocodone Bobbi trate 5 MG Oral Tablet Hydrocodone- Acetaminophen 5-325 MG Hydrocodone-Acetaminophen 5-325 MG 11/21/2019 12:00:00 AM EDT 1.0 {tablet_as_needed} active Hydrocodone-Acetaminophen 5-325 MG eCW1 ([facility]) tizanidine 2 MG Oral Tablet Tizanidine HCl 2 MG Tizanidine H Cl 2 MG 11/21/2019 12:00:00 AM EDT 1.0 {tablet_as_needed} active Tizanidine HCl 2 MG eCW1 ([facility]) tizanidine 2 MG Oral Tablet Tizanidine HCl 2 MG Tizanidine H Cl 2 MG 11/21/2019 12:00:00 AM EDT 1.0 {tablet_as_needed} suspended Tizanidine HCl 2 MG eCW1 ([facility]) tizanidine 2 MG Oral Tablet Tizanidine HCl 2 MG Tizanidine H Cl 2 MG 11/21/2019 12:00:00 AM EDT 1.0 {tablet_as_needed} active Tizanidine HCl 2 MG eCW1 ([facility]) tizanidine 2 MG Oral Tablet Tizanidine HCl 2 MG Tizanidine H Cl 2 MG 11/21/2019 12:00:00 AM EDT 1.0 {tablet_as_needed} active Tizanidine HCl 2 MG eCW1 ([facility]) tizanidine 2 MG Oral Tablet Tizanidine HCl 2 MG Tizanidine H Cl 2 MG 11/21/2019 12:00:00 AM EDT 1.0 {tablet_as_needed} active Tizanidine HCl 2 MG eCW1 ([facility]) tizanidine 2 MG Oral Tablet Tizanidine HCl 2 MG Tizanidine H Cl 2 MG 11/21/2019 12:00:00 AM EDT 1.0 {tablet_as_needed} active Tizanidine HCl 2 MG eCW1 ([facility]) tizanidine 2 MG Oral Tablet Tizanidine HCl 2 MG Tizanidine H Cl 2 MG 11/21/2019 12:00:00 AM EDT 1.0 {tablet_as_needed} active Tizanidine HCl 2 MG eCW1 ([facility]) tizanidine 2 MG Oral Tablet Tizanidine HCl 2 MG Tizanidine H Cl 2 MG 11/21/2019 12:00:00 AM EDT 1.0 {tablet_as_needed} active Tizanidine HCl 2 MG eCW1 ([facility]) Acetaminophen 325 MG / Hydrocodone Bitartrate 5 MG Ora l Tablet Hydrocodone Bitartrate/Acetaminophen 09/18/2019 12:00:00 AM EDT ORAL active [facility] ([facility]) Prednisone 20 MG Oral Tablet Prednisone 09/08/2019 12:00:00 AM EDT ORAL completed [facility] ([facility]) Ergocalciferol 11451 UNT Oral Capsule Vitamin D (Ergocalcife rol) 07/24/2019 12:00:00 AM EDT active M EDENT ([facility]) gabapentin 100 MG Oral Capsule Gabapentin 05/21/2019 12:00:00 AM EST ORAL completed [facility] ([facility]) Insurance Providers Payer name Policy type / Coverage type Policy ID Covered green party ID Covered green party's relationship to grider Policy Grider Plan Information [facility] [id number] SP [id number] [facility] / [id number] Self [id number] [facility] O [id number] S [id number] Problems, Conditions, and Diagnoses Code Display Name Description Problem Type Effective Dates Data Source(s) Z34.80 care Supervision of other normal P [place] 06/28/2020 12:00:00 AM EST eCW1 ([facility]) M96.1 [id number] Lumbar post-laminectomy syndrome Problem 11/24/2019 12:00:00 AM EDT eCW1 ([facility]) M43.06 [id number] Lumbar spondylolysis Problem 11/24/2019 12:0 0:00 AM EDT eCW1 ([facility]) M47.816 [id number] Lumbar Facet arthropathy Problem 11/24/2019 12:00:00 AM EDT eCW1 ([facility]) [id number] Mild recurrent major depression Mild recurrent m ajor depression Problem 05/21/2019 12:00:00 AM EST [facility] ([facility]) [id number] Panic disorder without agoraphobia Panic disorde r without agoraphobia Problem 05/21/2019 12:00:00 AM EST [facility] ([facility]) [id number] Lumbar spine ankylosis Lumbar spine ankylosis Problem 05/21/2019 12:00:00 AM EST [facility] ([facility]) [id number] Crohn's disease of small AND large intes tines Crohn's disease of small AND large intestines Problem 05/21/2019 12:00:00 AM EST [facility] ([facility]) Results ID Date Data Source [id number] 06/08/2020 12:00:00 AM EST [facility] Name Value Range Interpretation Code Description Data Padmini rce(s) Supporting Document(s) SARS coronavirus 2 RNA [Presence] in Res piratory specimen by ANGELA with probe detection NEGATIVE [facility] and reported by [facility]. ID Date Data Source [id number] 06/08/2020 12:00:00 AM EST [facility] Name Value Range Interpretation Code Description Data Padmini rce(s) Supporting Document(s) Carestart Rapid COVID Antigen Test Negative [facility] This lab was reported by Clarke roberson. ID Date Data Source [id number] 05/27/2020 11:45:00 AM EST [facility] ([facility]) Name Value Range Interpretation Code Description Data Padmini rce(s) Supporting Document(s) Inhouse Urine Laboratory test result [facility] ([facility]) ID Date Data Source [id number] 07/23/2019 11:28:00 AM EDT [facility] Name Value Range Interpretation Code Description Data Padmini rce(s) Supporting Document(s) Thyroid Stimulating Hormone 0.568 uIU/ML 0.358-3.740 Norm al (applies to non- numeric results) [facility] Free T4 1.04 ng/dL 0.76-1.46 Normal (applies to non-numeric resul ts) [facility]) ID Date Data Source [id number] 07/23/2019 11:28:00 AM EDT [facility] Name Value Range Interpretation Code Description Data Padmini rce(s) Supporting Document(s) Creatinine For GFR 0.65 mg/dL 0.55-1.30 Normal (applies to non -numeric results) [facility]) Glucose, Fasting 75 mg/dL 70-100 Normal (applies to non-numeric results) [facility]) Blood Urea Nitrogen 10 mg/dL 7-18 Normal (applies to non-nume jeffrey results) [facility] ([facility]) Glomerular Filtration Rate Laboratory test result Normal (applies to non- numeric results) [facility] ([facility]) <content>Units are mL/min/1.73 m2</content>
<content></content>
<content>Chronic Kidney Disease Staging per NKF:</content>
<content></content>
<content>Stage I & II GFR >=60 Normal to Mildly Decreased</content>
<content>Stage III GFR 30- 59 Moderately Decreased</content>
<content>Stage IV GFR 15-29 Severely Decreased</content>
<content>Stage V GFR <15 Very Little GFR Left</content>
<content>ESRD GFR <15 on RIBBON BLOCKER</content>
<content></content> Sodium Level 137 meq/L 136-145 Normal (applies to non-numeric res ults) [facility] ([facility]) Potassium Serum 3.9 meq/L 3.5-5.1 Normal (applies to non-numeric results) [facility] ([facility]) Anion Gap 4 meq/L 8-16 Below low [facility] Chloride Level 106 meq/L 98-107 Normal (applies to non-numeric r esults) [facility] ([facility]) Carbon Dioxide Level 27 meq/L 21-32 Normal (applies to non-num arturo results) [facility] Calcium Level 8.8 mg/dL 8.5-10.1 Normal (applies to non-numeric re sults) [facility] Alt/SGPT 22 U/L 12-78 Normal (applies to non-numeric resul ts) [facility]) Ast/Sgot 14 U/L 7-37 Normal (applies to non-numeric resul ts) [facility]) Total Protein 7.4 GM/DL 6.4-8.2 Normal (applies to non-numeric re sults) [facility]) Bilirubin,Total 0.7 mg/dL 0.2-1.0 Normal (applies to non-numeric results) [facility] ([facility]) Albumin 4.0 GM/DL 3.2-5.2 Normal (applies to non-numeric resul ts) [facility] Alkaline Phosphatase 64 U/L 45-117 Normal (applies to non-num arturo results) [facility] ([facility]) Albumin/Globulin Ratio 1.18 1.00-1.93 Normal (applies to non-numeric results) [facility] ([facility]) ID Date Data Source [id number] 07/23/2019 11:28:00 AM EDT [facility] ([facility]) Name Value Range Interpretation Code Description Data Padmini rce(s) Supporting Document(s) Vitamin B12 Level 555 pg/mL Normal (applies to non-numeri c results) [facility] ([facility]) VITAMIN B12 NORMAL RANGE NORMAL 247 - 911 PG/ML INDETERMINATE 211 - 246 PG/ML DEFICIENT LESS THAN 211 PG/ML Folate 16.9 ng/mL Normal (applies to non-numeric resul ts) [facility] ([facility]) FOLATE NORMAL RANGE NORMAL GREATER THAN 5.4 NG/ML INDETERMINATE 3.4-5.4 NG/ML DEFICIENT LESS THAN 3.4 NG/ML ID Date Data Source [id number] 07/23/2019 11:28:00 AM EDT [facility] ([facility]) Name Value Range Interpretation Code Description Data Padmini rce(s) Supporting Document(s) Calcidiol [Mass/volume] in Serum or Plasma 15.7 ng/mL 30.0- 100.0 Below low normal [facility]) ID Date Data Source [id number] 07/23/2019 11:28:00 AM EDT [facility] ([facility]) Name Value Range Interpretation Code Description Data Padmini rce(s) Supporting Document(s) Red Blood Count 4.16 10 4.00-5.40 Normal (applies to non-numeric results) [facility]) White Blood Count 5.6 10 4.0-10.0 Normal (applies to non-numeri c results) [facility]) Hematocrit 37.4 % 36.0-47.0 Normal (applies to non-numeric resul ts) [facility]) Hemoglobin 12.6 g/dL 12.0-15.5 Normal (applies to non-numeric resul ts) [facility]) Mean Corpuscular Volume 89.9 fl 80.0-96.0 Normal ( applies to non-numeric results) [facility]) Mean Corpuscular Hemoglobin 30.3 pg 27.0-33.0 Norm al (applies to non-numeric results) [facility] ([facility]) Mean Corpuscular HGB Conc 33.7 g/dL 32.0-36.5 Normal (applies to non-numeric results) [facility] ([facility]) Platelet Count, Automated 264 10 150-450 Normal (applies to non-numeric results) [facility] ([facility]) Neutrophils % 59.7 % 36.0-66.0 Normal (applies to non-numeric re sults) [facility] ([facility]) Red Cell Distribution Width 12.2 % 11.5-14.5 Norm al (applies to non-numeric results) [facility] ([facility]) Rice % 9.5 % 0.0-5.0 Above high normal [facility] ([facility]) Lymph % 28.2 % 24.0-44.0 Normal (applies to non-numeric resul ts) [facility] ([facility]) Eos % 1.4 % 0.0-3.0 Normal (applies to non-numeric resul ts) [facility] ([facility]) Baso % 0.7 % 0.0-1.0 Normal (applies to non-numeric resul ts) [facility] ([facility]) Nucleated Red Blood Cell % 0.0 % 0-0 Normal (applies to n on-numeric results) [facility] ([facility]) Immature Granulocyte % 0.5 % 0-3.0 Normal (applies to non-n umeric results) [facility] ([facility]) Neutrophils # 3.3 10 1.5-8.5 Normal (applies to non-numeric re sults) [facility] ([facility]) Lymph # 1.6 10 1.5-5.0 Normal (applies to non-numeric resul ts) [facility] ([facility]) Eos # 0.1 10 0.0-0.5 Normal (applies to non-numeric resul ts) [facility] ([facility]) Rice # 0.5 10 0.0-0.8 Normal (applies to non-numeric resul ts) [facility] ([facility]) Baso # 0.0 10 0.0-0.2 Normal (applies to non-numeric resul ts) [facility] ([facility]) Procedure Social History Code Duration Value Status Description Data Source(s ) Smoking 07/02/2020 12:00:00 AM EST Never Smoker completed Never S moker eCW1 ([facility]) Smoking 03/04/2020 12:00:00 AM EDT Never Smoker completed Never S moker eCW1 ([facility]) Smoking 03/04/2020 12:00:00 AM EDT Never Smoker completed Never S moker eCW1 ([facility]) Smoking 03/04/2020 12:00:00 AM EDT Never Smoker completed Never S moker eCW1 ([facility]) Smoking 03/04/2020 12:00:00 AM EDT Never Smoker completed Never S moker eCW1 ([facility]) Smoking 03/04/2020 12:00:00 AM EDT Never Smoker completed Never S moker eCW1 ([facility]) Smoking 12/03/2019 12:00:00 AM EDT Never Smoker completed Never S moker eCW1 ([facility]) Smoking 12/03/2019 12:00:00 AM EDT Never Smoker completed Never S moker eCW1 ([facility]) Smoking 11/21/2019 12:00:00 AM EDT Never Smoker completed Never S moker eCW1 ([facility]) Vital Signs ID Date Data Source UNK Name Value Range Interpretation Code Description Data Source(s) Diastolic blood pressure 78 mm[Hg] 78 mm[Hg] eCW1 ([facility]) Systolic blood pressure 122 mm[Hg] 122 mm[Hg] [facility] [facility]) Body mass index (BMI) [Ratio] 27.772 kg/m2 27.7 72 kg/m2 W1 ([facility]) Body height 60 [in_i] 60 [in_i] W1 ([facility]) Body weight 64.5 kg 64.5 kg W1 ([facility]) Body weight 142.2 [lb_av] 142.2 [lb_av] eCW1 ([facility]) [place] body weight 105 [lb_av] 105 [lb_av] MEDEN T ([facility]) Oxygen saturation in Arterial blood by Pulse oximetry 99 % 99 % MEDENT ([facility]) Body temperature 98.8 [degF] 98.8 [degF] MEDENT ([facility]) Respiratory rate 16 /min 16 /min MEDENT ( [facility]) Heart rate 82 /min 82 /min MEDENT ([facility]) Body mass index (BMI) [Ratio] 26.6 kg/m2 26.6 k g/m2 MEDENT ([facility]) Body weight 141.00 [lb_av] 141.00 [lb_av] MEDEN T ([facility]) Body height 61 [in_i] 61 [in_i] [facility] ([facility]) 5'1" Diastolic blood pressure 78 mm[Hg] 78 mm[Hg] MEDENT ([facility]) Systolic blood pressure 124 mm[Hg] 124 mm[Hg] M EDENT ([facility]) [place] body weight 105 [lb_av] 105 [lb_av] MEDEN T ([facility]) Oxygen saturation in Arterial blood by Pulse oximetry 98 % 98 % [facility] Body temperature 99.1 [degF] 99.1 [degF] [facility] Respiratory rate 18 /min 18 /min MEDENT ( [facility]) Heart rate 81 /min 81 /min MEDENT ([facility]) Body mass index (BMI) [Ratio] 26.5 kg/m2 26.5 k g/m2 MEDENT ([facility]) Body weight 140.25 [lb_av] 140.25 [lb_av] MEDEN T ([facility]) Body height 61 [in_i] 61 [in_i] MEDENT ([facility]) 5'1" Diastolic blood pressure 82 mm[Hg] 82 mm[Hg] MEDENT ([facility]) Systolic blood pressure 122 mm[Hg] 122 mm[Hg] M EDENT ([facility]) Diastolic blood pressure 70 mm[Hg] 70 mm[Hg] eCW1 ([facility]) Systolic blood pressure 116 mm[Hg] 116 mm[Hg] e CW1 ([facility]) Body temperature 98.1 [degF] 98.1 [degF] eCW1 ( [facility]) Respiratory rate 18 /min 18 /min eCW1 ([facility]) Heart rate 70 /min 70 /min eCW1 ([facility]) Body mass index (BMI) [Ratio] 29.10 kg/m2 29.10 kg/m2 eCW1 ([facility]) Body height 60 [in_i] 60 [in_i] eCW1 ([facility]) Body weight 149.0 [lb_av] 149.0 [lb_av] eCW1 ([facility]) [place] body weight 105 [lb_av] 105 [lb_av] MEDEN T ([facility]) Oxygen saturation in Arterial blood by Pulse oximetry 100 % 100 % MEDENT ([facility]) Body temperature 98.5 [degF] 98.5 [degF] MEDENT ([facility]) Respiratory rate 16 /min 16 /min MEDENT ( [facility]) Heart rate 63 /min 63 /min MEDENT ([facility]) Body mass index (BMI) [Ratio] 27.1 kg/m2 27.1 k g/m2 MEDENT ([facility]) Body weight 143.38 [lb_av] 143.38 [lb_av] MEDEN T ([facility]) Body height 61 [in_i] 61 [in_i] MEDENT ([facility]) 5'1" Diastolic blood pressure 80 mm[Hg] 80 mm[Hg] MEDENT ([facility]) Systolic blood pressure 108 mm[Hg] 108 mm[Hg] M EDENT ([facility]) Diastolic blood pressure 70 mm[Hg] 70 mm[Hg] eCW1 ([facility]) Systolic blood pressure 132 mm[Hg] 132 mm[Hg] e CW1 ([facility]) Body temperature 97.7 [degF] 97.7 [degF] eCW1 ( [facility]) Respiratory rate 18 /min 18 /min eCW1 ([facility]) Heart rate 76 /min 76 /min eCW1 ([facility]) Body mass index (BMI) [Ratio] 26.64 kg/m2 26.64 kg/m2 eCW1 ([facility]) Body height 60 [in_i] 60 [in_i] eCW1 ([facility]) Body weight 136.4 [lb_av] 136.4 [lb_av] eCW1 ([facility]) Diastolic blood pressure 70 mm[Hg] 70 mm[Hg] eCW1 ([facility]) Systolic blood pressure 119 mm[Hg] 119 mm[Hg] e CW1 ([facility]) Body temperature 98.0 [degF] 98.0 [degF] eCW1 ( [facility]) Respiratory rate 18 /min 18 /min eCW1 ([facility]) Heart rate 73 /min 73 /min eCW1 ([facility]) Body mass index (BMI) [Ratio] 26.67 kg/m2 26.67 kg/m2 eCW1 ([facility]) Body height 60 [in_i] 60 [in_i] eCW1 ([facility]) Body weight 136.6 [lb_av] 136.6 [lb_av] eCW1 ([facility]) Oxygen saturation in Arterial blood by Pulse oximetry 98 % 98 % MEDENT ([facility]) Body temperature 98.9 [degF] 98.9 [degF] MEDENT ([facility]) Respiratory rate 18 /min 18 /min MEDENT ( [facility]) Heart rate 87 /min 87 /min MEDENT ([facility]) Body mass index (BMI) [Ratio] 25.3 kg/m2 25.3 k g/m2 MEDENT ([facility]) Body weight 134.12 [lb_av] 134.12 [lb_av] MEDEN T ([facility]) Body height 61 [in_i] 61 [in_i] MEDENT ([facility]) 5'1" Diastolic blood pressure 78 mm[Hg] 78 mm[Hg] MEDENT ([facility]) Systolic blood pressure 118 mm[Hg] 118 mm[Hg] M EDENT ([facility]) Oxygen saturation in Arterial blood by Pulse oximetry 99 % 99 % MEDENT ([facility]) Body temperature 99.1 [degF] 99.1 [degF] MEDENT ([facility]) Respiratory rate 18 /min 18 /min MEDENT ( [facility]) Heart rate 71 /min 71 /min MEDENT ([facility]) Body mass index (BMI) [Ratio] 23.3 kg/m2 23.3 k g/m2 MEDENT ([facility]) Body weight 123.25 [lb_av] 123.25 [lb_av] MEDEN T ([facility]) Body height 61 [in_i] 61 [in_i] [facility] ([facility]) 5'1" Diastolic blood pressure 60 mm[Hg] 60 mm[Hg] MEDENT ([facility]) Systolic blood pressure 108 mm[Hg] 108 mm[Hg] M EDENT ([facility]) Oxygen saturation in Arterial blood by Pulse oximetry 99 % 99 % MED[facility] ([facility]) Body temperature 97.7 [degF] 97.7 [degF] MEDENT ([facility]) Respiratory rate 16 /min 16 /min MEDENT ( [facility]) Heart rate 65 /min 65 /min MEDENT ([facility]) Body mass index (BMI) [Ratio] 23.3 kg/m2 23.3 k g/m2 MEDENT ([facility]) Body weight 123.50 [lb_av] 123.50 [lb_av] MEDEN T ([facility]) Body height 61 [in_i] 61 [in_i] MEDENT ([facility]) 5'1" Diastolic blood pressure 72 mm[Hg] 72 mm[Hg] MEDENT ([facility]) Systolic blood pressure 130 mm[Hg] 130 mm[Hg] M EDENT ([facility]) Patient Treatment Plan of Care Planned Activity Planned Date Details Description Data Source (s) Acetaminophen 325 MG / Hydrocodone Bitartrate 5 MG Ora l Tablet 05/18/2020 12:00:00 AM EST eCW1 ([facility]) Acetaminophen 325 MG / Hydrocodone Bitartrate 5 MG Ora l Tablet 05/18/2020 12:00:00 AM EST eCW1 ([facility]) Acetaminophen 325 MG / Hydrocodone Bitartrate 5 MG Ora l Tablet 04/19/2020 12:00:00 AM EST eCW1 ([facility]) Acetaminophen 325 MG / Hydrocodone Bitartrate 5 MG Ora l Tablet 03/20/2020 12:00:00 AM EST eCW1 ([facility]) Acetaminophen 325 MG / Hydrocodone Bitartrate 5 MG Ora l Tablet 02/18/2020 12:00:00 AM EDT eCW1 ([facility]) Acetaminophen 325 MG / Hydrocodone Bitartrate 5 MG Ora l Tablet 11/21/2019 12:00:00 AM EDT eCW1 ([facility]) tizanidine 2 MG Oral Tablet 11/21/2019 12:00:00 AM EDT eCW1 ([facility])
--- OUTSIDE RECORDS SUMMARY | 2020-07-05 12:05 | CCD ---
Author Author [facility] Organization [facility] Address Unknown Phone Unavailable Care Team Providers Care Tool Grinder Name Role Phone Ngozi'jacob, A Juan Francisco PA Unavailable Unavailable O'jacob, [...] Juan Francisco PA Unavailable Unavailable O'jacob, A Jua Nfrancisco PA Unavailable Unavailable O'jacob, A Juan Francisco [...] O'jacob, A Juan Francisco PA Unavailable Unavailable Feola, T Rosetta PA [...] is protected by Article 27-F of the [facility] Public Health law. If you continue you may have access to information: Regarding HIV / AIDS; Provided by facilities licensed or operated by the [facility] Office of Mental Health; or Provided by the [facility] Office for People With Developmental Disabilities. If such information is present, then the following [facility] mandated warning applies: This information has been [...] law may result in a fine or fci sentence or both. A general authorization for the release of medical or other information is NOT sufficient authorization for further disc losure. Allergies and Adverse Reactions Type Description Substance Reaction Status Data Source(s ) Drug Allergy Drug Allergy NKDA MEDENT ([facility]) Encounters Encounter Providers Location Date Indications Data Source(s ) ([facility]) [facility] OB Visit [address] [place] [address] 06/29/2020 12:00:00 AM EST eCW1 ([facility]) Outpatient Attender: Rosetta PEÑA 021 06:19:17 PM EST - 06/08/2020 07:20:39 PM EST DocuTap ([facility] ) Outpatient Attender: Juan Francisco PEÑA [facility] 06/04/2020 10:30:00 AM EST MEDENT ([facility]) Unknown [address] [facility] [id number] 06/01/2020 12:00:00 AM EST eCW1 ([facility]) Outpatient Attender: Juan Francisco PEÑA [facility] 05/27/2020 09:20:00 AM EST MEDENT ([facility]) Unknown [address] [facility], [facility] [address] 05/18/2020 12:00:00 AM EST eCW1 ([facility]) Unknown [address] [facility] [address] 04/16/2020 12:00:00 AM EST eCW1 ([facility] [place] [address] [facility] [address] 03/18/2020 12:00:00 AM EST eCW1 ([facility]) [place] [address] [facility] [address] 03/04/2020 12:00:00 AM EDT eCW1 ([facility]) [place] [address] [facility] [address] 02/18/2020 12:00:00 AM EDT eCW1 ([facility]) Outpatient Attender: Juan Francisco PEÑA [facility] 01/21/2020 09:30:00 AM EDT MEDENT ([facility]) [place] [address] [facility] [address] 12/04/2019 12:00:00 AM EDT eCW1 ([facility]) [place] [address] [facility] [address] 11/21/2019 12:00:00 AM EDT eCW1 ([facility]) Outpatient Attender: Juan Francisco PEÑA [facility] 09/18/2019 02:00:00 PM EDT MEDENT ([facility]) Outpatient Attender: Juan Francisco PEÑA [facility] 09/08/2019 01:00:00 PM EDT MEDENT ([facility]) Outpatient Attender: Juan Francisco PEÑA [facility] 07/21/2019 10:00:00 AM EDT MEDENT ([facility]) Outpatient 06/05/2019 02:05:00 PM EST [facility] Outpatient Attender: Juan Francisco PEÑA [facility] 05/21/2019 12:30:00 PM EST MEDENT ([facility]) Medications Medication Brand Name Start Date Product Form Dose Route Admi nistrative Instructions Pharmacy Instructions Status Indications Reaction Description Data Source(s) Sertraline 50 MG Oral Tablet Sertraline HCL 05/27/2020 12:00:00 AM EST ORAL active [facility] ([facility]) [place] 05/27/2020 12:00:00 AM EST ORAL active MEDENT ([facility]) tizanidine 4 MG Oral Tablet Tizanidine HCL 05/27/2020 12:00:00 AM EST ORAL completed MEDENT ([facility]) Acetaminophen 325 MG / Hydrocodone Bobbi trate 5 MG Oral Tablet Hydrocodone- Acetaminophen 5-325 MG Hydrocodone-Acetaminophen 5-325 MG 05/18/2020 12:00:00 AM EST 1.0 {tablet_as_needed} suspended Hydrocodone-Acetaminophen 5-325 MG eCW1 ([facility]) Acetaminophen 325 MG / Hydrocodone Bobbi trate 5 MG Oral Tablet Hydrocodone- Acetaminophen 5-325 MG Hydrocodone-Acetaminophen 5-325 MG 05/18/2020 12:00:00 AM EST 1.0 {tablet_as_needed} active Hydrocodone-Acetaminophen 5-325 MG eCW1 ([facility]) Acetaminophen 325 MG / Hydrocodone Bobbi trate 5 MG Oral Tablet Hydrocodone- Acetaminophen 5-325 MG Hydrocodone-Acetaminophen 5-325 MG 05/18/2020 12:00:00 AM EST 1.0 {tablet_as_needed} active Hydrocodone-Acetaminophen 5-325 MG eCW1 ([facility]) Acetaminophen 325 MG / Hydrocodone Bobbi trate 5 MG Oral Tablet Hydrocodone- Acetaminophen 5-325 MG Hydrocodone-Acetaminophen 5-325 MG 04/19/2020 12:00:00 AM EST 1.0 {tablet_as_needed} active Hydrocodone-Acetaminophen 5-325 MG eCW1 ([facility]) Acetaminophen 325 MG / Hydrocodone Bobbi trate 5 MG Oral Tablet Hydrocodone- Acetaminophen 5-325 MG Hydrocodone-Acetaminophen 5-325 MG 03/20/2020 12:00:00 AM EST 1.0 {tablet_as_needed} active Hydrocodone-Acetaminophen 5-325 MG eCW1 ([facility]) Acetaminophen 325 MG / Hydrocodone Bobbi trate 5 MG Oral Tablet Hydrocodone- Acetaminophen 5-325 MG Hydrocodone-Acetaminophen 5-325 MG 02/18/2020 12:00:00 AM EDT 1.0 {tablet_as_needed} active Hydrocodone-Acetaminophen 5-325 MG eCW1 ([facility]) Acetaminophen 325 MG / Hydrocodone Bobbi trate 5 MG Oral Tablet Hydrocodone- Acetaminophen 5-325 MG Hydrocodone-Acetaminophen 5-325 MG 02/18/2020 12:00:00 AM EDT 1.0 {tablet_as_needed} active Hydrocodone-Acetaminophen 5-325 MG eCW1 ([facility]) tizanidine 2 MG Oral Capsule Tizanidine HCL 01/21/2020 12:00:00 AM EDT ORAL completed MEDENT ([facility]) Acetaminophen 325 MG / Hydrocodone Bobbi trate 5 MG Oral Tablet Hydrocodone- Acetaminophen 5-325 MG Hydrocodone-Acetaminophen 5-325 MG 11/21/2019 12:00:00 AM EDT 1.0 {tablet_as_needed} active Hydrocodone-Acetaminophen 5-325 MG eCW1 ([facility]) tizanidine 2 MG Oral Tablet Tizanidine HCl 2 MG Tizanidine H Cl 2 MG 11/21/2019 12:00:00 AM EDT 1.0 {tablet_as_needed} active Tizanidine HCl 2 MG eCW1 ([facility]) Acetaminophen 325 MG / Hydrocodone Bobbi trate 5 MG Oral Tablet Hydrocodone- Acetaminophen 5-325 MG Hydrocodone-Acetaminophen 5-325 MG 11/21/2019 12:00:00 AM EDT 1.0 {tablet_as_needed} active Hydrocodone-Acetaminophen 5-325 MG eCW1 ([facility]) tizanidine 2 MG Oral Tablet Tizanidine HCl 2 MG Tizanidine H Cl 2 MG 11/21/2019 12:00:00 AM EDT 1.0 {tablet_as_needed} active Tizanidine HCl 2 MG eCW1 ([facility]) tizanidine 2 MG Oral Tablet Tizanidine HCl 2 MG Tizanidine H Cl 2 MG 11/21/2019 12:00:00 AM EDT 1.0 {tablet_as_needed} suspended Tizanidine HCl 2 MG eCW1 ([facility]) tizanidine 2 MG Oral Tablet Tizanidine HCl 2 MG Tizanidine H Cl 2 MG 11/21/2019 12:00:00 AM EDT 1.0 {tablet_as_needed} active Tizanidine HCl 2 MG eCW1 ([facility]) tizanidine 2 MG Oral Tablet Tizanidine HCl 2 MG Tizanidine H Cl 2 MG 11/21/2019 12:00:00 AM EDT 1.0 {tablet_as_needed} active Tizanidine HCl 2 MG eCW1 ([facility]) tizanidine 2 MG Oral Tablet Tizanidine HCl 2 MG Tizanidine H Cl 2 MG 11/21/2019 12:00:00 AM EDT 1.0 {tablet_as_needed} active Tizanidine HCl 2 MG eCW1 ([facility]) tizanidine 2 MG Oral Tablet Tizanidine HCl 2 MG Tizanidine H Cl 2 MG 11/21/2019 12:00:00 AM EDT 1.0 {tablet_as_needed} active Tizanidine HCl 2 MG eCW1 ([facility]) tizanidine 2 MG Oral Tablet Tizanidine HCl 2 MG Tizanidine H Cl 2 MG 11/21/2019 12:00:00 AM EDT 1.0 {tablet_as_needed} active Tizanidine HCl 2 MG eCW1 ([facility]) tizanidine 2 MG Oral Tablet Tizanidine HCl 2 MG Tizanidine H Cl 2 MG 11/21/2019 12:00:00 AM EDT 1.0 {tablet_as_needed} active Tizanidine HCl 2 MG eCW1 ([facility]) Acetaminophen 325 MG / Hydrocodone Bitartrate 5 MG Ora l Tablet Hydrocodone Bitartrate/Acetaminophen 09/18/2019 12:00:00 AM EDT ORAL active MEDENT ([facility]) Prednisone 20 MG Oral Tablet Prednisone 09/08/2019 12:00:00 AM EDT ORAL completed MEDENT ([facility]) Ergocalciferol 52274 UNT Oral Capsule Vitamin D (Ergocalcife rol) 07/24/2019 12:00:00 AM EDT active EDENT ([facility]) gabapentin 100 MG Oral Capsule Gabapentin 05/21/2019 12:00:00 AM EST ORAL completed MEDENT ([facility]) Insurance Providers Payer name Policy type / Coverage type Policy ID Covered democrat ID Covered democrat's relationship to grider Policy Grider Plan Information [facility] [id number] SP [id number] Family Health Plan / [id number] Self [id number] [facility] O [id number] Problems, Conditions, and Diagnoses Code Display Name Description Problem Type Effective Dates Data Source(s) Z34.80 care Supervision of other normal P [place] 06/28/2020 12:00:00 AM EST eCW1 ([facility]) M96.1 [id number] Lumbar post-laminectomy syndrome Problem 11/24/2019 12:00:00 AM EDT eCW1 ([facility]) M43.06 [id number] Lumbar spondylolysis Problem 11/24/2019 12:0 0:00 AM EDT eCW1 ([facility]) M47.816 [id number] Lumbar Facet arthropathy Problem 11/24/2019 12:00:00 AM EDT eCW1 ([facility]) [id number] Mild recurrent major depression Mild recurrent m ajor depression Problem 05/21/2019 12:00:00 AM EST MEDENT ([facility]) [id number] Panic disorder without agoraphobia Panic disorde r without agoraphobia Problem 05/21/2019 12:00:00 AM EST MEDENT ([facility]) [id number] Lumbar spine ankylosis Lumbar spine ankylosis Problem 05/21/2019 12:00:00 AM EST MEDENT ([facility]) [id number] Crohn's disease of small AND large intes tines Crohn's disease of small AND large intestines Problem 05/21/2019 12:00:00 AM EST MEDENT ([facility]) Results ID Date Data Source [id number] 06/08/2020 12:00:00 AM EST [facility] Name Value Range Interpretation Code Description Data Padmini rce(s) Supporting Document(s) SARS coronavirus 2 RNA [Presence] in Res piratory specimen by ANGELA with probe detection NEGATIVE [facility] This lab was ordered by Meghan Metcalf and reported by [facility]. ID Date Data Source [id number] 06/08/2020 12:00:00 AM EST [facility] Name Value Range Interpretation Code Description Data Padmini rce(s) Supporting Document(s) Carestart Rapid COVID Antigen Test Negative [facility] This lab was reported by Meghan roberson. ID Date Data Source [id number] 05/27/2020 11:45:00 AM EST MEDENT ([facility]) Name Value Range Interpretation Code Description Data Padmini rce(s) Supporting Document(s) Inhouse Urine Laboratory test result [facility] ([facility]) ID Date Data Source [id number] 07/23/2019 11:28:00 AM EDT [facility] ([facility]) Name Value Range Interpretation Code Description Data Padmini rce(s) Supporting Document(s) Thyroid Stimulating Hormone 0.568 uIU/ML 0.358-3.740 Norm al (applies to non- numeric results) [facility] ([facility]) Free T4 1.04 ng/dL 0.76-1.46 Normal (applies to non-numeric resul ts) [facility] ([facility]) ID Date Data Source [id number] 07/23/2019 11:28:00 AM EDT [facility] ([facility]) Name Value Range Interpretation Code Description Data Padmini rce(s) Supporting Document(s) Creatinine For GFR 0.65 mg/dL 0.55-1.30 Normal (applies to non -numeric results) [facility] ([facility]) Glucose, Fasting 75 mg/dL 70-100 Normal (applies to non-numeric results) [facility] ([facility]) Blood Urea Nitrogen 10 mg/dL 7-18 Normal (applies to non-nume jeffrey results) [facility] ([facility]) Glomerular Filtration Rate Laboratory test result Normal (applies to non- numeric results) [facility] ([facility]) <content>Units are mL/min/1.73 m2</content>
<content></content>
<content>Chronic Kidney Disease Staging per NKF:</content>
<content></content>
<content>Stage I & II GFR >=60 Normal to Mildly Decreased</content>
<content>Stage III GFR 30- 59 Moderately Decreased</content>
<content>Stage IV GFR 15-29 Severely Decreased</content>
<content>Stage V GFR <15 Very Little GFR Left</content>
<content>ESRD GFR <15 on RADIO ENGINEER</content>
<content></content> Sodium Level 137 meq/L 136-145 Normal (applies to non-numeric res ults) MED[facility] ([facility]) Potassium Serum 3.9 meq/L 3.5-5.1 Normal (applies to non-numeric results) [facility] ([facility]) Anion Gap 4 meq/L 8-16 Below low normal [facility] ( [facility]) Chloride Level 106 meq/L 98-107 Normal (applies to non-numeric r esults) [facility] ([facility]) Carbon Dioxide Level 27 meq/L 21-32 Normal (applies to non-num arturo results) [facility] ([facility]) Calcium Level 8.8 mg/dL 8.5-10.1 Normal (applies to non-numeric re sults) [facility] ([facility]) Alt/SGPT 22 U/L 12-78 Normal (applies to non-numeric resul ts) [facility] ([facility]) Ast/Sgot 14 U/L 7-37 Normal (applies to non-numeric resul ts) [facility] ([facility]) Total Protein 7.4 GM/DL 6.4-8.2 Normal (applies to non-numeric re sults) [facility] ([facility]) Bilirubin,Total 0.7 mg/dL 0.2-1.0 Normal (applies to non-numeric results) [facility] ([facility]) Albumin 4.0 GM/DL 3.2-5.2 Normal (applies to non-numeric resul ts) [facility] ([facility]) Alkaline Phosphatase 64 U/L 45-117 Normal (applies to non-num arturo results) [facility] ([facility]) Albumin/Globulin Ratio 1.18 1.00-1.93 Normal (applies to non-numeric results) [facility] ([facility]) ID Date Data Source [id number] 07/23/2019 11:28:00 AM EDT [facility] ([facility]) Name Value Range Interpretation Code Description Data Padmini rce(s) Supporting Document(s) Vitamin B12 Level 555 pg/mL Normal (applies to non-numeri c results) [facility] ([facility]) VITAMIN B12 NORMAL RANGE NORMAL 247 - 911 PG/ML INDETERMINATE 211 - 246 PG/ML DEFICIENT LESS THAN 211 PG/ML Folate 16.9 ng/mL Normal (applies to non-numeric resul ts) [facility] ([facility]) FOLATE NORMAL RANGE NORMAL GREATER THAN 5.4 NG/ML INDETERMINATE 3.4-5.4 NG/ML DEFICIENT LESS THAN 3.4 NG/ML ID Date Data Source [id number] 07/23/2019 11:28:00 AM EDT [facility] ([facility]) Name Value Range Interpretation Code Description Data Padmini rce(s) Supporting Document(s) Calcidiol [Mass/volume] in Serum or Plasma 15.7 ng/mL 30.0- 100.0 Below low normal [facility] ([facility]) ID Date Data Source [id number] 07/23/2019 11:28:00 AM EDT [facility] Name Value Range Interpretation Code Description Data Padmini rce(s) Supporting Document(s) Red Blood Count 4.16 10 4.00-5.40 Normal (applies to non-numeric results) [facility] ([facility]) White Blood Count 5.6 10 4.0-10.0 Normal (applies to non-numeri c results) [facility] ([facility]) Hematocrit 37.4 % 36.0-47.0 Normal (applies to non-numeric resul ts) [facility] ([facility]) Hemoglobin 12.6 g/dL 12.0-15.5 Normal (applies to non-numeric resul ts) [facility] ([facility]) Mean Corpuscular Volume 89.9 fl 80.0-96.0 Normal ( applies to non-numeric results) [facility] ([facility]) Mean Corpuscular Hemoglobin 30.3 pg 27.0-33.0 Norm al (applies to non-numeric results) [facility] ([facility]) Mean Corpuscular HGB Conc 33.7 g/dL 32.0-36.5 Normal (applies to non-numeric results) [facility] ([facility]) Platelet Count, Automated 264 10 150-450 Normal (applies to non-numeric results) [facility] ([facility]) Neutrophils % 59.7 % 36.0-66.0 Normal (applies to non-numeric re sults) [facility] ([facility]) Red Cell Distribution Width 12.2 % 11.5-14.5 Norm al (applies to non-numeric results) [facility] ([facility]) [place] % 9.5 % 0.0-5.0 Above high normal [facility] ([facility]) Lymph % 28.2 % 24.0-44.0 Normal (applies to non-numeric resul ts) [facility] ([facility]) Eos % 1.4 % 0.0-3.0 Normal (applies to non-numeric resul ts) [facility] ([facility]) Baso % 0.7 % 0.0-1.0 Normal (applies to non-numeric resul ts) [facility] ([facility]) Nucleated Red Blood Cell % 0.0 % 0-0 Normal (applies to n on-numeric results) [facility] ([facility]) Immature Granulocyte % 0.5 % 0-3.0 Normal (applies to non-n umeric results) [facility] ([facility]) Neutrophils # 3.3 10 1.5-8.5 Normal (applies to non-numeric re sults) [facility] ([facility]) Lymph # 1.6 10 1.5-5.0 Normal (applies to non-numeric resul ts) [facility] ([facility]) Eos # 0.1 10 0.0-0.5 Normal (applies to non-numeric resul ts) [facility] ([facility]) [place] # 0.5 10 0.0-0.8 Normal (applies to non-numeric resul ts) [facility] ([facility]) Baso # 0.0 10 0.0-0.2 Normal (applies to non-numeric resul ts) [facility] ([facility]) Procedure Social History Code Duration Value Status Description Data Source(s ) Smoking 07/02/2020 12:00:00 AM EST Never Smoker completed Never S moker eCW1 ([facility]) Smoking 03/04/2020 12:00:00 AM EDT Never Smoker completed Never S moker eCW1 ([facility]) Smoking 03/04/2020 12:00:00 AM EDT Never Smoker completed Never S moker eCW1 ([facility]) Smoking 03/04/2020 12:00:00 AM EDT Never Smoker completed Never S moker eCW1 ([facility]) Smoking 03/04/2020 12:00:00 AM EDT Never Smoker completed Never S moker eCW1 ([facility]) Smoking 03/04/2020 12:00:00 AM EDT Never Smoker completed Never S moker eCW1 ([facility]) Smoking 12/03/2019 12:00:00 AM EDT Never Smoker completed Never S moker eCW1 ([facility]) Smoking 12/03/2019 12:00:00 AM EDT Never Smoker completed Never S moker eCW1 ([facility]) Smoking 11/21/2019 12:00:00 AM EDT Never Smoker completed Never S moker eCW1 ([facility]) Vital Signs ID Date Data Source [id number] Name Value Range Interpretation Code Description Data Source(s) Diastolic blood pressure 78 mm[Hg] 78 mm[Hg] eCW1 ([facility]) Systolic blood pressure 122 mm[Hg] 122 mm[Hg] e CW1 ([facility]) Body mass index (BMI) [Ratio] 27.772 kg/m2 27.7 72 kg/m2 W1 ([facility]) Body height 60 [in_i] 60 [in_i] W1 ([facility]) Body weight 64.5 kg 64.5 kg W1 ([facility]) Body weight 142.2 [lb_av] 142.2 [lb_av] eCW1 ([facility]) [place] body weight 105 [lb_av] 105 [lb_av] MEDEN T ([facility]) Oxygen saturation in Arterial blood by Pulse oximetry 99 % 99 % MEDENT ([facility]) Body temperature 98.8 [degF] 98.8 [degF] MEDENT ([facility]) Respiratory rate 16 /min 16 /min MEDENT ( [facility]) Heart rate 82 /min 82 /min MED[facility] ([facility]) Body mass index (BMI) [Ratio] 26.6 kg/m2 26.6 k g/m2 MED[facility] ([facility]) Body weight 141.00 [lb_av] 141.00 [lb_av] MEDEN T ([facility]) Body height 61 [in_i] 61 [in_i] [facility] ([facility]) 5'1" Diastolic blood pressure 78 mm[Hg] 78 mm[Hg] MEDENT ([facility]) Systolic blood pressure 124 mm[Hg] 124 mm[Hg] M EDENT ([facility]) [place] body weight 105 [lb_av] 105 [lb_av] MEDEN T ([facility]) Oxygen saturation in Arterial blood by Pulse oximetry 98 % 98 % MEDENT ([facility]) Body temperature 99.1 [degF] 99.1 [degF] MEDENT ([facility]) Respiratory rate 18 /min 18 /min MEDENT ( [facility]) Heart rate 81 /min 81 /min MED[facility] ([facility]) Body mass index (BMI) [Ratio] 26.5 kg/m2 26.5 k g/m2 MED[facility] ([facility]) Body weight 140.25 [lb_av] 140.25 [lb_av] MEDEN T ([facility]) Body height 61 [in_i] 61 [in_i] [facility] ([facility]) 5'1" Diastolic blood pressure 82 mm[Hg] 82 mm[Hg] MEDENT ([facility]) Systolic blood pressure 122 mm[Hg] 122 mm[Hg] M EDENT ([facility]) Diastolic blood pressure 70 mm[Hg] 70 mm[Hg] eCW1 ([facility]) Systolic blood pressure 116 mm[Hg] 116 mm[Hg] e CW1 ([facility]) Body temperature 98.1 [degF] 98.1 [degF] eCW1 ( [facility]) Respiratory rate 18 /min 18 /min eCW1 ([facility]) Heart rate 70 /min 70 /min [facility]) Body mass index (BMI) [Ratio] 29.10 kg/m2 29.10 kg/m2 eCW1 ([facility]) Body height 60 [in_i] 60 [in_i] eCW1 ([facility]) Body weight 149.0 [lb_av] 149.0 [lb_av] eCW1 ([facility]) [place] body weight 105 [lb_av] 105 [lb_av] MEDEN T ([facility]) Oxygen saturation in Arterial blood by Pulse oximetry 100 % 100 % MED[facility] ([facility]) Body temperature 98.5 [degF] 98.5 [degF] MED[facility] ([facility]) Respiratory rate 16 /min 16 /min MED[facility] ( [facility]) Heart rate 63 /min 63 /min MED[facility] ([facility]) Body mass index (BMI) [Ratio] 27.1 kg/m2 27.1 k g/m2 MED[facility] ([facility]) Body weight 143.38 [lb_av] 143.38 [lb_av] MEDEN T ([facility]) Body height 61 [in_i] 61 [in_i] MEDENT ([facility]) 5'1" Diastolic blood pressure 80 mm[Hg] 80 mm[Hg] MEDENT ([facility]) Systolic blood pressure 108 mm[Hg] 108 mm[Hg] M EDENT ([facility]) Diastolic blood pressure 70 mm[Hg] 70 mm[Hg] eCW1 ([facility]) Systolic blood pressure 132 mm[Hg] 132 mm[Hg] e CW1 ([facility]) Body temperature 97.7 [degF] 97.7 [degF] eCW1 ( [facility]) Respiratory rate 18 /min 18 /min eCW1 ([facility]) Heart rate 76 /min 76 /min eCW1 ([facility]) Body mass index (BMI) [Ratio] 26.64 kg/m2 26.64 kg/m2 eCW1 ([facility]) Body height 60 [in_i] 60 [in_i] eCW1 ([facility]) Body weight 136.4 [lb_av] 136.4 [lb_av] eCW1 ([facility]) Diastolic blood pressure 70 mm[Hg] 70 mm[Hg] eCW1 ([facility]) Systolic blood pressure 119 mm[Hg] 119 mm[Hg] e CW1 ([facility]) Body temperature 98.0 [degF] 98.0 [degF] eCW1 ( [facility]) Respiratory rate 18 /min 18 /min eCW1 ([facility]) Heart rate 73 /min 73 /min eCW1 ([facility]) Body mass index (BMI) [Ratio] 26.67 kg/m2 26.67 kg/m2 W1 ([facility]) Body height 60 [in_i] 60 [in_i] eCW1 ([facility]) Body weight 136.6 [lb_av] 136.6 [lb_av] eCW1 ([facility]) Oxygen saturation in Arterial blood by Pulse oximetry 98 % 98 % MEDENT ([facility]) Body temperature 98.9 [degF] 98.9 [degF] MEDENT ([facility]) Respiratory rate 18 /min 18 /min MEDENT ( [facility]) Heart rate 87 /min 87 /min MEDENT ([facility]) Body mass index (BMI) [Ratio] 25.3 kg/m2 25.3 k g/m2 MEDENT ([facility]) Body weight 134.12 [lb_av] 134.12 [lb_av] MEDEN T ([facility]) Body height 61 [in_i] 61 [in_i] MEDENT ([facility]) 5'1" Diastolic blood pressure 78 mm[Hg] 78 mm[Hg] MEDENT ([facility]) Systolic blood pressure 118 mm[Hg] 118 mm[Hg] M EDENT ([facility]) Oxygen saturation in Arterial blood by Pulse oximetry 99 % 99 % MEDENT ([facility]) Body temperature 99.1 [degF] 99.1 [degF] MEDENT ([facility]) Respiratory rate 18 /min 18 /min MEDENT ( [facility]) Heart rate 71 /min 71 /min MEDENT ([facility]) Body mass index (BMI) [Ratio] 23.3 kg/m2 23.3 k g/m2 MEDENT ([facility]) Body weight 123.25 [lb_av] 123.25 [lb_av] MEDEN T ([facility]) Body height 61 [in_i] 61 [in_i] MEDENT ([facility]) 5'1" Diastolic blood pressure 60 mm[Hg] 60 mm[Hg] MEDENT ([facility]) Systolic blood pressure 108 mm[Hg] 108 mm[Hg] M EDENT ([facility]) Oxygen saturation in Arterial blood by Pulse oximetry 99 % 99 % MEDENT ([facility]) Body temperature 97.7 [degF] 97.7 [degF] MEDENT ([facility]) Respiratory rate 16 /min 16 /min MEDENT ( [facility]) Heart rate 65 /min 65 /min MEDENT ([facility]) Body mass index (BMI) [Ratio] 23.3 kg/m2 23.3 k g/m2 MEDENT ([facility]) Body weight 123.50 [lb_av] 123.50 [lb_av] MEDEN T ([facility]) Body height 61 [in_i] 61 [in_i] MEDENT ([facility]) 5'1" Diastolic blood pressure 72 mm[Hg] 72 mm[Hg] MEDENT ([facility]) Systolic blood pressure 130 mm[Hg] 130 mm[Hg] M SHERIN ([facility]) Patient Treatment Plan of Care Planned Activity Planned Date Details Description Data Source (s) Acetaminophen 325 MG / Hydrocodone Bitartrate 5 MG Ora l Tablet 05/18/2020 12:00:00 AM EST eCW1 ([facility]) Acetaminophen 325 MG / Hydrocodone Bitartrate 5 MG Ora l Tablet 05/18/2020 12:00:00 AM EST eCW1 ([facility]) Acetaminophen 325 MG / Hydrocodone Bitartrate 5 MG Ora l Tablet 04/19/2020 12:00:00 AM EST eCW1 ([facility]) Acetaminophen 325 MG / Hydrocodone Bitartrate 5 MG Ora l Tablet 03/20/2020 12:00:00 AM EST eCW1 ([facility]) Acetaminophen 325 MG / Hydrocodone Bitartrate 5 MG Ora l Tablet 02/18/2020 12:00:00 AM EDT eCW1 ([facility]) Acetaminophen 325 MG / Hydrocodone Bitartrate 5 MG Ora l Tablet 11/21/2019 12:00:00 AM EDT eCW1 ([facility]) tizanidine 2 MG Oral Tablet 11/21/2019 12:00:00 AM EDT eCW1 ([facility])
--- NOTE | 2020-07-05 12:50 | REP ---
INDICATION: VAGINAL BLEEDING. COMPARISON: None. TECHNIQUE: Real-time sonographic evaluation of pelvis performed utilizing transabdominal and endovaginal technique. FINDINGS: Uterus measures 9.5 x 5.0 x 6.3 cm. Endometrial echo complex measures 10 mm in thickness. No gestational sac is seen within the endometrial canal. Right ovary measures 2.8 x 1.4 x 2.1 cm and left ovary 2.7 x 2.2 x 2.6 cm. Cystic structure in the left ovary probably represents a corpus luteum 1.5 cm in diameter. There is no adnexal mass or free fluid. There is no evidence of ovarian torsion with duplex Doppler evaluation. IMPRESSION: Empty uterus. Reportedly 6 week gestation was visualized 1 week ago at an outside institution. Therefore the findings are compatible with spontaneous . <Electronically signed by Ki Cheek > 07/05/20 [id number]
[2020-07-05] MEDS ORDERED: KETOROLAC TROMETHAMINE 10 MG TAB PO ONE (13:15)
[2020-07-05 13:22] LABS: BASO % 0.4 % (0.0-1.0); EOS # 0.1 10^3/uL (0.0-0.5); HEMATOCRIT 36.8 % (36.0-47.0); LYMPH # 1.8 10^3/uL (1.5-5.0); LYMPH % 17.7 % (24.0-44.0); MEAN CORPUSCULAR HEMOGLOBIN 29.1 pg (27.0-33.0); MEAN CORPUSCULAR HGB CONC 32.6 g/dl (32.0-36.5); MEAN CORPUSCULAR VOLUME 89.3 fl (80.0-96.0); MONO # 0.7 10^3/uL (0.0-0.8); NEUTROPHILS # 7.5 10^3/uL (1.5-8.5); NEUTROPHILS % 73.2 % (36.0-66.0); PLATELET COUNT, AUTOMATED 307 10^3/uL (150-450); RED BLOOD COUNT 4.12 10^6/uL (4.00-5.40); WHITE BLOOD COUNT 10.2 10^3/uL (4.0-10.0)
[2020-07-05 14:13] VITALS: BP 129/73
== END 2020-07-05 14:19 | disposition home or self-care (01) ==
LOC: M ED 11:35
DX: O03.9 Complete or unspecified spontaneous abortion without complication (principal); F41.9 Anxiety disorder, unspecified; F33.9 Major depressive disorder, recurrent, unspecified; K50.90 Crohn's disease, unspecified, without complications; Z87.42 Personal history of other diseases of the female genital tract

== ENCOUNTER → 2020-07-05 | Outpatient (REF) | payer OTHER | LOC: M PLALAB 09:22 | PROVIDERS: ATTEND Advanced Practice Midwife | DX: O36.80X0 Pregnancy with inconclusive fetal viability, not applicable or unspecified (principal) ==

== ENCOUNTER → 2020-07-07 | Outpatient (REF) | payer OTHER | LOC: M PLALAB 11:46 | PROVIDERS: ATTEND Advanced Practice Midwife | DX: O03.9 Complete or unspecified spontaneous abortion without complication (principal) ==

== ENCOUNTER → 2020-07-14 | Outpatient (CLI) | payer OTHER | LOC: M PLALAB 11:25 | PROVIDERS: ATTEND Advanced Practice Midwife | DX: O03.9 Complete or unspecified spontaneous abortion without complication (principal) ==

== ENCOUNTER → 2020-07-20 | Outpatient (REF) | payer OTHER | LOC: M PLALAB 13:37 | PROVIDERS: ATTEND Advanced Practice Midwife | DX: O03.9 Complete or unspecified spontaneous abortion without complication (principal) ==

== ENCOUNTER → 2020-07-23 | Outpatient (REF) | payer OTHER ==
[2020-07-23 15:53] LABS: BASO % 0.4 % (0.0-1.0); EOS # 0.1 10^3/uL (0.0-0.5); EOS % 1.7 % (0.0-3.0); HEMOGLOBIN 11.2 g/dl (12.0-15.5); LYMPH # 2.3 10^3/uL (1.5-5.0); MEAN CORPUSCULAR HEMOGLOBIN 29.6 pg (27.0-33.0); MEAN CORPUSCULAR VOLUME 92.6 fl (80.0-96.0); MONO # 0.8 10^3/uL (0.0-0.8); MONO % 10.7 % (2.0-8.0); NEUTROPHILS # 4.3 10^3/uL (1.5-8.5); NEUTROPHILS % 56.5 % (36.0-66.0); PLATELET COUNT, AUTOMATED 281 10^3/uL (150-450); RED BLOOD COUNT 3.78 10^6/uL (4.00-5.40); WHITE BLOOD COUNT 7.6 10^3/uL (4.0-10.0)
== END ==
LOC: M PLALAB 15:14
PROVIDERS: ATTEND Physician Assistant
DX: F33.0 Major depressive disorder, recurrent, mild (principal)

== ENCOUNTER → 2020-09-09 | Outpatient (CLI) | payer OTHER ==
--- NOTE | 2020-09-11 03:00 | ECWPNPC ---
PATIENT NAME: GORDY SRIVASTAVA : 1985 GENDER: FEMALE VISIT DATE: 09/09/2020 DISCHARGE DATE: 09/09/20 1110 VISIT LOCKED DATE TIME: PHYSICIAN: HERBERTH ERWIN RESOURCE: HERBERTH ERWIN REASON FOR APPOINTMENT 1. BACK/WANTS PROCEDURE HISTORY OF PRESENT ILLNESS DEPRESSION SCREENING: PHQ-2 (2015 EDITION) LITTLE INTEREST OR PLEASURE IN DOING THINGS?NOT AT ALL FEELING DOWN, DEPRESSED, OR HOPELESS?NOT AT ALL TOTAL SCORE0 34-YEAR-OLD FEMALE IN FOR CHRONIC PAIN FOLLOW-UP. PATIENT WAS ON HYDROCODONE IN THE PAST HOWEVER SHE STOPPED THIS MEDICATION WHEN SHE BECAME . PATIENT IS NO LONGER AND WISHES TO RESUME MEDICATION. SHE RATES HER PAIN CURRENTLY AT A 7 OUT OF 10. PATIENT WAS ON HYDROCODONE PREVIOUSLY AND RECEIVED GOOD RESULTS WITH THIS EVIDENCED BY INCREASED FUNCTIONALITY AND DECREASED PAIN. PAIN CENTER INTAKE QUESTIONS: DO YOU HAVE A HISTORY OF MRSA? :NO DO YOU TAKE A BLOOD THINNERS? :NO DO YOU HAVE ANY BLEEDING DISORDERS? :NO ANY NEW NUMBNESS OR WEAKNESS IN YOUR LEGS OR ARMS? :NO ANY PACEMAKER,DEFIBRILLATOR, OR DORSAL COLUMN STIMULATOR? :NO DO YOU HAVE ANY RASHES OR OPEN SORES? :NO ARE YOU ALLERGIC TO IV DYE? :NO ARE YOU DIABETIC? :NO ANY NEW PROBLEMS WITH YOUR MEDICATIONS? :NO HAVE YOU RECEIVED A VACCINE IN THE PAST 30 DAYS? :YES 1ST COVID 08/30/2020 DO YOU PLAN TO RECEIVE A VACCINE IN THE NEXT 21 DAYS? :YES IF SO WHAT VACCINE AND WHEN? 09/27/2020 DO YOU NEED ANY PRESCRIPTION? :YES NORCO, TIZANDINE DO YOU TAKE ANY IMMUNOSUPPRESSIVE MEDICATIONS? :NO DO YOU HAVE ANY KIDNEY OR LIVER DISEASE? :NO IS THERE A CHANCE YOU COULD BE ? :NO ARE YOU BREAST FEEDING? :NO GENERAL: -. FALL RISK SCREENING: SCREENING : NO FALLS REPORTED IN THE LAST YEAR. PAIN SCREENING: PATIENT HAS A COMPLAINT OF ACUTE OR CHRONIC PAIN :YES LOCATION OF PAIN:LOW BACK INTENSITY OF PAIN (SCALE OF 1 TO 10):7 WHAT DOES YOUR PAIN FEEL LIKE:ACHING, BURNING, SHARP, STABBING, THROBBING, SORE, SHOOTING DURATION:CONTINOUS, CONSTANT, ALL DAY PAIN IS INCREASED BY:ACTIVITIES PAIN IS DECREASED BY:USE OF PAIN MEDICATIONS NURSING NOTE: -. CURRENT MEDICATIONS TAKING LEXAPRO 20 MG TABLET 1 TABLET ORALLY ONCE A DAY TAKING XANAX 0.5 MG TABLET 1 TABLET ORALLY ONCE DAILY NEEDED TAKING TIZANIDINE HCL 2 MG TABLET 1 TABLET NEEDED ORALLY BEFORE BEDTIME MAY REPEAT IN 4 HRS MDD 2 TAKING VITAMIN D (ERGOCALCIFEROL) 50 MCG (2000 UT) CAPSULE 1 CAPSULE ORALLY ONCE A DAY NOT-TAKING HYDROCODONE-ACETAMINOPHEN 5-325 MG TABLET 1 TABLET NEEDED ORALLY FOR PAIN EVERY 8 HRS MDD 3 NOT-TAKING AMOXICILLIN-POT CLAVULANATE 875-125 MG TABLET 1 TABLET ORALLY EVERY 12 HRS NOT-TAKING 27-1 MG TABLET 1 TABLET ORALLY ONCE A DAY MEDICATION LIST REVIEWED AND RECONCILED WITH THE PATIENT PAST MEDICAL HISTORY PANIC ATTACKS CROHNS DISEASE CHRONIC BACK PAIN ALLERGIES MUSCLE RELAXERS: FATIGUE - SIDE EFFECTS SOCIAL HISTORY GENERAL: TOBACCO USE ARE YOU A:NONSMOKER LATEX QUESTIONNAIRE LATEX ALLERGY : HAVE YOU EVER DEVELOPED ANY TYPE OF REACTION AFTER HANDLING LATEX PRODUCTS SUCH RUBBER GLOVES, CONDOMS, DIAPHRAGMS, BALLOONS, SOCKS, OR UNDERWEAR?NO LATEX ALLERGY : HAVE YOU EVER DEVELOPED ANY TYPE OF REACTION DURING OR AFTER DENTAL APPOINTMENT, VAGINAL/RECTAL EXAMINATION, SURGICAL PROCEDURE, OR ANY OTHER EXPOSURE?NO LATEX RISK : HAVE YOU EVER HAD ANY DIFFICULTY BREATHING OR HIVES AFTER EATING OR HANDLING ANY FRUITS, OR VEGETABLES; SUCH KIWI, BANANAS, STONE FRUITS, OR CHESTNUTSNO LATEX RISK : DO YOU HAVE A PREVIOUS PERSONAL HISTORY OF MORE THAN NINE SURGERIES, SPINA BIFIDA, OR REPEATED CATHERIZATIONS? NO LATEX RISK : ARE YOU FREQUENTLY EXPOSED TO LATEX PRODUCTS IN YOUR OCCUPATION?NO DATE ASKED : 09/09/2020 ALCOHOL USE: YES, VERY LITTLE. RECREATIONAL DRUG USE DRUG USE?NO CAFFEINE CAFFEINE USE?YES 1 CUP DAILY LANGUAGE LANGUAGES SPOKEN:[place] LEARNING BARRIERS / SPECIAL NEEDS CHANGE FROM LAST VISIT?NO BARRIERS TO LEARNING?NO HEARING IMPAIRED?NO VISION IMPAIRED?NO COGNITIVELY IMPAIRED?NO READINESS TO LEARN?YES LEARNING CAPABILITIES PRESENT?YES EMOTIONAL BARRIERS?NO SPECIAL DEVICES?NO PYROTECHNIC ASSEMBLER NEEDED?NO OCCUPATION: STAY AT HOME MOTHER. - HAS THE PATIENT BEEN EDUCATED REGARDING HIS/HER PLAN OF CARE?YES HAS THE PATIENT BEEN EDUCATED REGARDING PAIN, THE RISK FOR PAIN, THE IMPORTANCE OF EFFECTIVE PAIN MANAGEMENT, AND THE PAIN ASSESSMENT PROCESS?YES ADVANCE DIRECTIVE ADVANCE DIRECTIVE DISCUSSED WITH PATIENT:YES PT STATES THAT SHE DOES NOT HAVE HCP, PATIENT GIVEN HEALTH CARE PROXY INFO PACKET TO TAKE HOME. 03/04/2020 - DM PT. DENIES ALCOHOL USE. REVIEW OF SYSTEMS CONSTITUTIONAL: ANY RECENT FEVER NO . CHILLS NO . WEIGHT CHANGE OF UNKNOWN REASONS NO . GASTROENTEROLOGY: NEW UNEXPLAINABLE CHANGES IN BOWEL CONTROL NO . CONSTIPATION NO . GENITOURINARY: ANY NEW CHANGE IN BLADDER CONTROL? NO . NEUROLOGY: NEW ONSET DIZZINESS OR NEUROLOGICAL CHANGES NOT MENTIONED NO . NEW NUMBNESS OR PAIN PATTERNS NOT MENTIONED AND PERTINENT TO TODAY'S VISIT NO . CARDIOLOGY: NEW CHEST PRESSURE NO . PATIENT DENIES NO . RESPIRATORY: UNEXPLAINABLE COUGH NO . NEW SHORTNESS OF BREATH NO . VITAL SIGNS WT 147 LBS, HT 60 IN, BMI 28.71 INDEX, BP 121/80 MM HG, HR 64 /MIN, RR 18 /MIN, TEMP 97.7 F, OXYGEN SAT % 98%, SAFE IN ENV? (Y/N) YEST.MINNA APARICIO. EXAMINATION GENERAL EXAMINATION: GENERALNO ACUTE DISTRESS, WELL NOURISHED AND HYDRATED. PSYCHAPPROPRIATE MOOD AND AFFECT . LUNGS:CLEAR TO AUSCULTATION BILATERALLY, NO WHEEZES, RHONCHI, RALES. HEART:NO MURMURS, REGULAR RATE AND RHYTHM. 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 WITH [id number] NOTES: 34-YEAR-OLD FEMALE IN FOR CHRONIC PAIN FOLLOW-UP. GIVEN PRESENTING SYMPTOMS RECOMMEND OBTAINING AN MRI FOR FURTHER EVALUATION AND RESTARTING PATIENT'S HYDROCODONE WITH FOLLOW-UP POST IMAGING. PATIENT EXPRESSED UNDERSTANDING OF AND WAS IN AGREEMENT WITH TREATMENT PLAN. GIVEN TIME TO ASK QUESTIONS AND EXPRESS CONCERNS. , ISTOP REGISTRY REVIEWED AND DEMONSTRATES COMPLLIANCE. (REF # [id number] ). [facility] (CURRENT) USE OF OPIATE ANALGESIC LAB: URINE TEST GROUP BHAVINLONNIE 09/09/2020 11:05:23 AM > XANAX 09/07, NORCO 08/30/20 OTHERS REFILL TIZANIDINE HCL TABLET, 2 MG, 1 TABLET NEEDED, ORALLY, BEFORE BEDTIME MAY REPEAT IN 4 HRS MDD 2, 30 DAYS, 50, REFILLS 1 PROCEDURE CODES FA211 ESTABILISHED PATIENT [facility] CHARGE DISPOSITION & COMMUNICATION FOLLOW UP POST IMAGING (REASON: LUMBAR MRI WITH CONTRAST ) ELECTRONICALLY SIGNED BY BOUCHRA LEACH ON 09/10/2020 AT 08:39 AM EDT DISCLAIMER : THIS IS A VISIT SUMMARY EXTRACTED FROM THE [employer] CHART. IT IS NOT A COPY OF THE [employer] PROGRESS NOTE. MONIQUE
== END ==
LOC: M PAIN 10:15
PROVIDERS: ATTEND Family Medicine
DX: M43.06 Spondylolysis, lumbar region (principal); G89.29 Other chronic pain; Z86.59 Personal history of other mental and behavioral disorders; Z88.8 Allergy status to other drugs, medicaments and biological substances; Z79.899 Other long term (current) drug therapy

== ENCOUNTER → 2020-09-24 | Outpatient (CLI) | payer OTHER ==
[~2020-09-24] MED LIST: PROHANCE 279.3MG/ML 15ML VIAL As Ordered ONE
--- NOTE | 2020-09-24 20:22 | REPVR ---
PROCEDURE INFORMATION: Exam: MR Lumbar Spine Without and With Contrast Exam date and time: 09/24/2020 7:30 PM Age: 34 years old Clinical indication: Low back pain; Prior surgery; Surgery date: 6+ months; Surgery type: Spinal fusion; Patient HX: Lbp S/P laminectomy syndrome; Additional info: Post laminectomy syndrome TECHNIQUE: Imaging protocol: Multiplanar magnetic resonance images of the lumbar spine without and with intravenous contrast. Contrast material: PROHANCE; Contrast volume: 13 ml; Contrast route: INTRAVENOUS (IV); COMPARISON: CR SPINE LS W/BENDING 09/12/2019 12:45 PM FINDINGS: Study is limited by artifact arising from metallic fusion hardware. Vertebral body height and AP alignment is preserved. S1 is considered partially lumbarized. Previous fusion at L5-S1 no evidence of discitis/osteomyelitis. No epidural fluid collection. Conus medullaris terminates T12-L1. No pathologic intrathecal enhancement. L1-L2: No central or foraminal stenosis. L2-L3: No central or foraminal stenosis. L3-L4: No central or foraminal stenosis. L4-L5: No central or foraminal stenosis. L5-S1: No central or definite foraminal stenosis. IMPRESSION: 1. Study is limited by artifact arising from metallic fusion hardware. 2. No definite acute abnormality to the degree visualized. Electronically signed by: Oj Lopez On 09/24/2020 20:22:33 PM
== END ==
LOC: M RAD 17:41
PROVIDERS: ATTEND Family Medicine
DX: M96.1 Postlaminectomy syndrome, not elsewhere classified (principal)
CPT/HCPCS: 72158; A9576

== ENCOUNTER → 2020-10-14 | Outpatient (CLI) | payer OTHER ==
--- NOTE | 2020-10-16 06:26 | ECWPNPC ---
PATIENT NAME: GORDY SRIVASTAVA : 1985 GENDER: FEMALE VISIT DATE: 10/14/2020 DISCHARGE DATE: 10/14/20 1035 VISIT LOCKED DATE TIME: PHYSICIAN: HERBERTH ERWIN RESOURCE: HERBERTH ERWIN REASON FOR APPOINTMENT 1. REVIEW MRI HISTORY OF PRESENT ILLNESS GENERAL: HPI 34-YEAR-OLD FEMALE IN FOR CHRONIC PAIN FOLLOW-UP. SHE RATES HER PAIN CURRENTLY AT AN 8 OUT OF 10 AND DESCRIBES IT ACHING, AND SHARP. PATIENT HAD AN MRI PERFORMED RECENTLY WHICH WILL BE REVIEWED WITH PATIENT TODAY.. -. FALL RISK SCREENING: SCREENING : NO FALLS REPORTED IN THE LAST YEAR. PAIN SCREENING: PATIENT HAS A COMPLAINT OF ACUTE OR CHRONIC PAIN :YES LOCATION OF PAIN:LOW BACK INTENSITY OF PAIN (SCALE OF 1 TO 10):8 WHAT DOES YOUR PAIN FEEL LIKE:ACHING, SHARP DURATION:CONTINOUS, CONSTANT, AWAKENS FROM SLEEP PAIN IS INCREASED BY:ACTIVITIES, PROLONGED STANDING PAIN IS DECREASED BY:USE OF PAIN MEDICATIONS, SITTING, OTHERS HEATING PAD NURSING NOTE: -. PAIN CENTER INTAKE QUESTIONS: DO YOU HAVE A HISTORY OF MRSA? :NO DO YOU TAKE A BLOOD THINNERS? :NO DO YOU HAVE ANY BLEEDING DISORDERS? :NO ANY NEW NUMBNESS OR WEAKNESS IN YOUR LEGS OR ARMS? :NO ANY PACEMAKER,DEFIBRILLATOR, OR DORSAL COLUMN STIMULATOR? :NO DO YOU HAVE ANY RASHES OR OPEN SORES? :NO ARE YOU ALLERGIC TO IV DYE? :NO ARE YOU DIABETIC? :NO ANY NEW PROBLEMS WITH YOUR MEDICATIONS? :NO HAVE YOU RECEIVED A VACCINE IN THE PAST 30 DAYS? :NO 2ND COVID VACCINATION RECEIVED 09/27/2020 DO YOU PLAN TO RECEIVE A VACCINE IN THE NEXT 21 DAYS? :NO DO YOU NEED ANY PRESCRIPTION? :NO DO YOU TAKE ANY IMMUNOSUPPRESSIVE MEDICATIONS? :NO DO YOU HAVE ANY KIDNEY OR LIVER DISEASE? :NO IS THERE A CHANCE YOU COULD BE ? :NO ARE YOU BREAST FEEDING? :NO CURRENT MEDICATIONS TAKING LEXAPRO 20 MG TABLET 1 TABLET ORALLY ONCE A DAY TAKING XANAX 0.5 MG TABLET 1 TABLET ORALLY ONCE DAILY NEEDED TAKING VITAMIN D (ERGOCALCIFEROL) 50 MCG (1999 UT) CAPSULE 1 CAPSULE ORALLY ONCE A DAY TAKING TIZANIDINE HCL 2 MG TABLET 1 TABLET NEEDED ORALLY BEFORE BEDTIME MAY REPEAT IN 4 HRS MDD 2 TAKING HYDROCODONE-ACETAMINOPHEN 5-325 MG TABLET 1 TABLET NEEDED ORALLY FOR PAIN EVERY 8 HRS MDD 3 NOT-TAKING AMOXICILLIN-POT CLAVULANATE 875-125 MG TABLET 1 TABLET ORALLY EVERY 12 HRS NOT-TAKING 27-1 MG TABLET 1 TABLET ORALLY ONCE A DAY MEDICATION LIST REVIEWED AND RECONCILED WITH THE PATIENT PAST MEDICAL HISTORY PANIC ATTACKS CROHNS DISEASE CHRONIC BACK PAIN ALLERGIES MUSCLE RELAXERS: FATIGUE - SIDE EFFECTS SOCIAL HISTORY GENERAL: TOBACCO USE ARE YOU A:NONSMOKER LATEX QUESTIONNAIRE LATEX ALLERGY : HAVE YOU EVER DEVELOPED ANY TYPE OF REACTION AFTER HANDLING LATEX PRODUCTS SUCH RUBBER GLOVES, CONDOMS, DIAPHRAGMS, BALLOONS, SOCKS, OR UNDERWEAR?NO LATEX ALLERGY : HAVE YOU EVER DEVELOPED ANY TYPE OF REACTION DURING OR AFTER DENTAL APPOINTMENT, VAGINAL/RECTAL EXAMINATION, SURGICAL PROCEDURE, OR ANY OTHER EXPOSURE?NO LATEX RISK : HAVE YOU EVER HAD ANY DIFFICULTY BREATHING OR HIVES AFTER EATING OR HANDLING ANY FRUITS, OR VEGETABLES; SUCH KIWI, BANANAS, STONE FRUITS, OR CHESTNUTSNO LATEX RISK : DO YOU HAVE A PREVIOUS PERSONAL HISTORY OF MORE THAN NINE SURGERIES, SPINA BIFIDA, OR REPEATED CATHERIZATIONS? NO LATEX RISK : ARE YOU FREQUENTLY EXPOSED TO LATEX PRODUCTS IN YOUR OCCUPATION?NO DATE ASKED : 10/14/2020 ALCOHOL USE: YES, VERY LITTLE. RECREATIONAL DRUG USE DRUG USE?NO CAFFEINE CAFFEINE USE?YES 1 CUP DAILY LANGUAGE LANGUAGES SPOKEN:[place] EDUCATION LEVEL OF EDUCATION:FINISHED HIGH SCHOOL LEARNING BARRIERS / SPECIAL NEEDS CHANGE FROM LAST VISIT?NO BARRIERS TO LEARNING?NO HEARING IMPAIRED?NO VISION IMPAIRED?NO COGNITIVELY IMPAIRED?NO READINESS TO LEARN?YES LEARNING CAPABILITIES PRESENT?YES EMOTIONAL BARRIERS?NO SPECIAL DEVICES?NO OPTICAL WORKER NEEDED?NO OCCUPATION: STAY AT HOME MOTHER. - HAS THE PATIENT BEEN EDUCATED REGARDING HIS/HER PLAN OF CARE?YES HAS THE PATIENT BEEN EDUCATED REGARDING PAIN, THE RISK FOR PAIN, THE IMPORTANCE OF EFFECTIVE PAIN MANAGEMENT, AND THE PAIN ASSESSMENT PROCESS?YES ADVANCE DIRECTIVE ADVANCE DIRECTIVE DISCUSSED WITH PATIENT:YES PT STATES THAT SHE DOES NOT HAVE HCP, PATIENT GIVEN HEALTH CARE PROXY INFO PACKET TO TAKE HOME. 03/04/2020 - DM PT. DENIES ALCOHOL USE. REVIEW OF SYSTEMS CONSTITUTIONAL: ANY RECENT FEVER NO . CHILLS NO . WEIGHT CHANGE OF UNKNOWN REASONS NO . GASTROENTEROLOGY: NEW UNEXPLAINABLE CHANGES IN BOWEL CONTROL NO . CONSTIPATION NO . GENITOURINARY: ANY NEW CHANGE IN BLADDER CONTROL? NO . NEUROLOGY: NEW ONSET DIZZINESS OR NEUROLOGICAL CHANGES NOT MENTIONED NO . NEW NUMBNESS OR PAIN PATTERNS NOT MENTIONED AND PERTINENT TO TODAY'S VISIT NO . CARDIOLOGY: NEW CHEST PRESSURE NO . PATIENT DENIES NO . RESPIRATORY: UNEXPLAINABLE COUGH NO . NEW SHORTNESS OF BREATH NO . VITAL SIGNS WT 146.8 LBS, HT 60 IN, BMI 28.67 INDEX, BP 128/80 MM HG, HR 67 /MIN, RR 18 /MIN, TEMP 97.7 F, OXYGEN SAT % 97%, SAFE IN ENV? (Y/N) YES, NA INITIALS IA 09:59, REVIEWED BY: ISABEL MACIAS MA. EXAMINATION GENERAL EXAMINATION: GENERALNO ACUTE DISTRESS, WELL NOURISHED AND HYDRATED. PSYCHAPPROPRIATE MOOD AND AFFECT . LUNGS:CLEAR TO AUSCULTATION BILATERALLY, NO WHEEZES, RHONCHI, RALES. HEART:NO MURMURS, REGULAR RATE AND RHYTHM. BACK:POINT TENDER BILATERAL LOW BACK, BANDS OF RESTRICTIVE TISSUE NOTED OVER TRIGGER POINTS.. ASSESSMENTS MYALGIA, OTHER SITE - M79.18 (PRIMARY) TREATMENT MYALGIA, OTHER SITE MEDICATION: VALIUM TAB 5MG ORALLY (DIAZEPAM) (ORDERED FOR 10/22/2020) MEDICATION: NORCO TABLET 5MG/325MG ORALLY (HYDROCODONE/ACETAMINOPHEN) (ORDERED FOR 10/22/2020) NOTES: 34-YEAR-OLD FEMALE IN FOR CHRONIC PAIN FOLLOW-UP. MRI WAS REVIEWED WITH PATIENT TODAY. GIVEN PRESENTING SYMPTOMS AND RESULTS OF PHYSICAL EXAMINATION RECOMMEND BILATERAL LOW BACK TRIGGER POINT INJECTIONS WITH POSTPROCEDURAL FOLLOW-UP. PATIENT HAS EXPRESSED UNDERSTANDING OF AND WAS IN AGREEMENT WITH TREATMENT PLAN. GIVEN TIME TO ASK QUESTIONS AND EXPRESS CONCERNS. ISTOP REGISTRY REVIEWED AND DEMONSTRATES COMPLLIANCE. (REF # [id number] ) BRINGS IN MEDICATIONS WHICH IS APPROPRIATE FOR WHAT WAS DISPENSED. RECENT URINE TOXICOLOGY REVIEWED. NO UNAUTHORIZED MEDICATIONS. NO ILLICIT SUBSTANCES AND PRESCRIBED MEDICATIONS WERE PRESENT. CLINICAL NOTES: PREPROCEDURE AND PROCEDURE INFORMATION PRINTED AND PROVIDED TO PATIENT. PATIENT VERBALIZED AN UNDERSTANDING. WILBERTO MACIAS MA. PROCEDURE CODES FA211 ESTABILISHED PATIENT [facility] CHARGE DISPOSITION & COMMUNICATION FOLLOW UP POST PROCEDURE (REASON: BILATERAL LOW BACK TRIGGER POINT INJECTIONS ) ELECTRONICALLY SIGNED BY BOUCHRA LEACH ON 10/15/2020 AT 08:40 AM EDT DISCLAIMER : THIS IS A VISIT SUMMARY EXTRACTED FROM THE [employer] CHART. IT IS NOT A COPY OF THE [employer] PROGRESS NOTE. MONIQUE
== END ==
LOC: M PAIN 10:00
PROVIDERS: ATTEND Family Medicine
DX: M79.18 Myalgia, other site (principal); Z86.59 Personal history of other mental and behavioral disorders; Z88.8 Allergy status to other drugs, medicaments and biological substances; Z79.899 Other long term (current) drug therapy

== ENCOUNTER → 2020-11-07 | Outpatient (CLI) | payer OTHER | LOC: M LABSMTC 08:01 | PROVIDERS: ATTEND Anesthesiology | DX: Z20.822 Contact with and (suspected) exposure to COVID-19 (principal) ==

== ENCOUNTER → 2020-11-12 | Outpatient (CLI) | payer OTHER ==
[~2020-11-12] MED LIST changes: +BUPIVACAINE HCL 0.25% 10ML VIAL As Ordered ONE; +BUPIVACAINE HCL 0.25% 30ML VIAL As Ordered ONE; +NORCO, ANEXSIA 5/325MG TABLET (HYDROcodone/ACETAMINOPHEN) As Ordered ONE; -PROHANCE 279.3MG/ML 15ML VIAL As Ordered ONE; +TRIAMCINOLONE ACETONIDE SUSP 40 MG/ML VIAL (J3301) As Ordered ONE; +diazePAM 5MG TABLET As Ordered ONE
--- NOTE | 2020-11-17 02:28 | ECWPNPC ---
PATIENT NAME: GORDY SRIVASTAVA : 1985 GENDER: FEMALE VISIT DATE: 11/12/2020 DISCHARGE DATE: 11/12/20939 VISIT LOCKED DATE TIME: PHYSICIAN: MIROSLAVA QUESADA MD RESOURCE: MIROSLAVA QUESADA MD REASON FOR APPOINTMENT 1. BILATERAL LOW BACK TRIGGER POINT INJECTIONS HISTORY OF PRESENT ILLNESS GENERAL: -. FALL RISK SCREENING: SCREENING : NO FALLS REPORTED IN THE LAST YEAR. PAIN SCREENING: PATIENT HAS A COMPLAINT OF ACUTE OR CHRONIC PAIN :YES LOCATION OF PAIN:LOW BACK INTENSITY OF PAIN (SCALE OF 1 TO 10):8 WHAT DOES YOUR PAIN FEEL LIKE:ACHING, SHARP DURATION:STEADY, MAINLY DURING THE NIGHT PAIN IS INCREASED BY:ACTIVITIES NURSING NOTE: -. PAIN CENTER INTAKE QUESTIONS: DO YOU HAVE A HISTORY OF MRSA? :NO DO YOU TAKE A BLOOD THINNERS? :NO DO YOU HAVE ANY BLEEDING DISORDERS? :NO ANY NEW NUMBNESS OR WEAKNESS IN YOUR LEGS OR ARMS? :NO ANY PACEMAKER,DEFIBRILLATOR, OR DORSAL COLUMN STIMULATOR? :NO DO YOU HAVE ANY RASHES OR OPEN SORES? :NO ARE YOU ALLERGIC TO IV DYE? :NO ARE YOU DIABETIC? :NO ANY NEW PROBLEMS WITH YOUR MEDICATIONS? :NO HAVE YOU RECEIVED A VACCINE IN THE PAST 30 DAYS? :NO DO YOU PLAN TO RECEIVE A VACCINE IN THE NEXT 21 DAYS? :NO DO YOU TAKE ANY IMMUNOSUPPRESSIVE MEDICATIONS? :NO ANY HISTORY OF SEIZURES? :NO ANY HISTORY OF CARDIAC ISSUES OR EVENTS? :NO DO YOU HAVE ANY KIDNEY OR LIVER DISEASE? :NO DO YOU HAVE SLEEP APNEA? :NO ANY RECENT HEAD INJURY? :NO DO YOU HAVE ANY NEW INFECTIONS? :NO IS THERE A CHANCE YOU COULD BE ? :NO ARE YOU BREAST FEEDING? :NO WHEN DID YOU LAST EAT? : - WHEN DID YOU LAST DRINK? : - WHAT DID YOU LAST DRINK? : - NAME OF PERSON DRIVING YOU HOME? : -LINDY JORGENSEN DO YOU HAVE ANY OTHER QUESTIONS OR CONCERNS? : -DENIES CURRENT MEDICATIONS TAKING LEXAPRO 20 MG TABLET 1 TABLET ORALLY ONCE A DAY TAKING XANAX 0.5 MG TABLET 1 TABLET ORALLY ONCE DAILY NEEDED TAKING VITAMIN D (ERGOCALCIFEROL) 50 MCG (2000 UT) CAPSULE 1 CAPSULE ORALLY ONCE A DAY TAKING TIZANIDINE HCL 2 MG TABLET 1 TABLET NEEDED ORALLY BEFORE BEDTIME MAY REPEAT IN 4 HRS MDD 2 TAKING HYDROCODONE-ACETAMINOPHEN 5-325 MG TABLET 1 TABLET NEEDED ORALLY FOR PAIN EVERY 8 HRS MDD 3 NOT-TAKING AMOXICILLIN-POT CLAVULANATE 875-125 MG TABLET 1 TABLET ORALLY EVERY 12 HRS NOT-TAKING 27-1 MG TABLET 1 TABLET ORALLY ONCE A DAY MEDICATION LIST REVIEWED AND RECONCILED WITH THE PATIENT PAST MEDICAL HISTORY PANIC ATTACKS CROHNS DISEASE CHRONIC BACK PAIN ALLERGIES MUSCLE RELAXERS: FATIGUE - SIDE EFFECTS SOCIAL HISTORY GENERAL: TOBACCO USE ARE YOU A:NONSMOKER LATEX QUESTIONNAIRE LATEX ALLERGY : HAVE YOU EVER DEVELOPED ANY TYPE OF REACTION AFTER HANDLING LATEX PRODUCTS SUCH RUBBER GLOVES, CONDOMS, DIAPHRAGMS, BALLOONS, SOCKS, OR UNDERWEAR?NO LATEX ALLERGY : HAVE YOU EVER DEVELOPED ANY TYPE OF REACTION DURING OR AFTER DENTAL APPOINTMENT, VAGINAL/RECTAL EXAMINATION, SURGICAL PROCEDURE, OR ANY OTHER EXPOSURE?NO LATEX RISK : HAVE YOU EVER HAD ANY DIFFICULTY BREATHING OR HIVES AFTER EATING OR HANDLING ANY FRUITS, OR VEGETABLES; SUCH KIWI, BANANAS, STONE FRUITS, OR CHESTNUTSNO LATEX RISK : DO YOU HAVE A PREVIOUS PERSONAL HISTORY OF MORE THAN NINE SURGERIES, SPINA BIFIDA, OR REPEATED CATHERIZATIONS? NO LATEX RISK : ARE YOU FREQUENTLY EXPOSED TO LATEX PRODUCTS IN YOUR OCCUPATION?NO DATE ASKED : 11/12/2020 ALCOHOL USE: YES, VERY LITTLE. RECREATIONAL DRUG USE DRUG USE?NO CAFFEINE CAFFEINE USE?YES 1 CUP DAILY LANGUAGE LANGUAGES SPOKEN:NEPALI EDUCATION LEVEL OF EDUCATION:FINISHED HIGH SCHOOL LEARNING BARRIERS / SPECIAL NEEDS CHANGE FROM LAST VISIT?NO BARRIERS TO LEARNING?NO HEARING IMPAIRED?NO VISION IMPAIRED?NO COGNITIVELY IMPAIRED?NO READINESS TO LEARN?YES LEARNING PREFERENCES?NO LEARNING CAPABILITIES PRESENT?YES EMOTIONAL BARRIERS?NO SPECIAL DEVICES?NO RESIDENTIAL MORTGAGE UNDERWRITER NEEDED?NO OCCUPATION: STAY AT HOME MOTHER. - HAS THE PATIENT BEEN EDUCATED REGARDING HIS/HER PLAN OF CARE?YES HAS THE PATIENT BEEN EDUCATED REGARDING PAIN, THE RISK FOR PAIN, THE IMPORTANCE OF EFFECTIVE PAIN MANAGEMENT, AND THE PAIN ASSESSMENT PROCESS?YES ADVANCE DIRECTIVE ADVANCE DIRECTIVE DISCUSSED WITH PATIENT:YES PT STATES THAT SHE DOES NOT HAVE HCP, PATIENT GIVEN HEALTH CARE PROXY INFO PACKET TO TAKE HOME. 03/04/2020 - DM PT. DENIES ALCOHOL USE. VITAL SIGNS WT 145.8 LBS, HT 60 IN, BMI 28.47 INDEX, BP 117/71 MM HG, HR 66 /MIN, RR 18 /MIN, TEMP 98.1 F, OXYGEN SAT % 98%, SAFE IN ENV? (Y/N) YES, NA INITIALS AW 0830, REVIEWED BY: MICHELLE. EXAMINATION GENERAL EXAMINATION: THE PATIENT IS ALERT, ORIENTED TIMES THREE AND COOPERATIVE. LUNGS ARE CLEAR TO AUSCULTATION. HEART SHOWS REGULAR RHYTHM, NO MURMURS AND NO GALLOPS. ASSESSMENTS MYALGIA, OTHER SITE - M79.18 (PRIMARY) TREATMENT MYALGIA, OTHER SITE COMPLETION OF PROCEDURAL VISIT WHEN MEETS CRITERIA MEDICATION: NORCO TABLET 5MG/325MG ORALLY (HYDROCODONE/ACETAMINOPHEN)EROS DELUNA 11/12/2020 8:51:32 AM > VERIFIED. STEPHEN JOHNSON 11/12/2020 8:57:08 AM > ADMINISTERED MEDICATION: VALIUM TAB 5MG ORALLY (DIAZEPAM)EROS DELUNA 11/12/2020 8:51:52 AM > VERIFIED. STEPHEN JOHNSON 11/12/2020 8:57:33 AM > ADMINISTERED PROCEDURES PAIN NURSING RECORD PROCEDURE IN ROOM 0816, PHYSICIAN IN ROOM 0924, START 0927, FINISH 0929, PHYSICIAN OUT OF ROOM 0929, OUT OF ROOM 0935, ECG N/A, PATIENT SHIELDED N/A, SAFETY STRAP N/A, PREP ALCOHOL DR. QUESADA, DRESSING TEGADERM Burt JOHNSON RN LOC: 1. ALERT, ORIENTED, STEPHEN JOHNSON 11/12/2020 9:28:39 AM > RESP: 1. REGULAR, NO DYSPNEA, STEPHEN JOHNSON 11/12/2020 9:28:44 AM > COLOR: 1. PINKALEX TOM 11/12/2020 9:28:48 AM > SKIN: 1. WARM, DRY, STEPHEN JOHNSON 11/12/2020 9:28:52 AM > POSITION: 5. SITTING, STEPHEN JOHNSON 11/12/2020 9:28:57 AM > VITALS: EXIT VITALS 128/83, HR 61, 98%, R14, PAIN 0/10 @0935 SHARON JOHNSON RN COMPLETION OF PROCEDURE APPOINTMENT: POST PAIN 0, DRESSING SITE DRY AND INTACT, IV N/A, GAIT STEADY, TEACHING COMPLETED, PATIENT ACKNOWLEDGES UNDERSTANDING YES, PROCEDURE APPOINTMENT COMPLETED AT 0935 PN TRIGGER POINT INJECTION NO STEROIDS PRE PROCEDURE DIAGNOSIS 1. MYALGIA 2. PAIN AT BILATERAL LOW BACK AREA POST PROCEDURE DIAGNOSIS 1. MYALGIA 2. PAIN AT BILATERAL LOW BACK AREA PROCEDURE TRIGGER POINT INJECTION AT BILATERAL LOW BACK AREA SURGEON DR. MIROSLAVA QUESADA DRY PRESS OPERATOR HELPER NONE ANESTHESIA LOCAL PRE PROCEDURE NOTE PATIENT WITH HISTORY OF CHRONIC PAIN AT RIGHT AND LEFT LOW BACK AREA. I EVALUATED THE PATIENT AND REVIEWED THE CHART. THERE IS EVIDENCE OF BANDS OF TISSUE WITH RESTRICTION OF MOVEMENT AND PRESENCE OF TRIGGER POINT AT THE RIGHT AND LEFT LOW BACK AREA. I WENT OVER THE RISKS, ALTERNATIVES, AND BENEFITS ASSOCIATED WITH THIS PROCEDURE. THE PATIENT WOULD LIKE TO PROCEED AND GAVE CONSENT TO PERFORM THE PROCEDURE. THE PATIENT DENIES UNEXPLAINABLE WEIGHT LOSS, FEVER, CHILLS, OR NEW CHANGES IN URINARY OR BOWEL CONTROL. THE PATIENT IS COVID-19 NEGATIVE DESCRIPTION OF PROCEDURE THE PATIENT WAS BROUGHT TO THE PROCEDURE ROOM AND PLACED IN THE SITTING POSITION. THE AREA WAS CLEANED WITH ALCOHOL. THE PROCEDURE WAS DONE USING ASEPTIC STERILE TECHNIQUES. A TIMEOUT WAS PERFORMED WHERE THE CONSENTED SITE WAS VERIFIED WITH EVERYONE IN THE ROOM. USING A 25-GAUGE NEEDLE, TRIGGER POINTS WERE INJECTED INTO THE RIGHT AND LEFT LOW BACK AREA WITH A TOTAL OF 40 ML OF BUPIVACAINE 0.25%. AGREED WITH THE PATIENT THE PROCEDURE WAS DONE WITHOUT STEROIDS. THERE WAS NO EVIDENCE OF BLOOD, PARESTHESIA OR CEREBROSPINAL FLUID DURING THE PROCEDURE. THE PATIENT WAS SENT TO THE RECOVERY ROOM. THE PATIENT WAS MOVING THE EXTREMITIES AND DOING WELL. THERE WAS NO COMPLICATION DURING THE PROCEDURE. EBL LESS THAN 5 ML. POST PROCEDURE NOTE THE PROCEDURE DONE WAS DISCUSSED WITH THE PATIENT. THE PATIENT WILL BE SEEN IN A FOLLOW UP IN THE NEXT FEW WEEKS. I AM LOOKING FOR LONG LASTING PAIN RELIEF FOR THE PATIENT WITH THIS INTERVENTION. INSTRUCTIONS WERE GIVEN, QUESTIONS WERE ANSWERED, AND THE PATIENT EXPRESSED UNDERSTANDING AND AGREES WITH THE PLAN. I, NOLA CABA, DOCUMENTED THE ABOVE INFORMATION ACTING A SCRIBE FOR DR. QUESADA. I HAVE REVIEWED THE ABOVE DOCUMENT, WRITTEN BY NOLA CABA, MATERIALS INTERN, AND I VERIFY THAT IT IS ACCURATE PROCEDURE CODES 17553 INJ TRIGGER POINT 2 MUSCL DISPOSITION & COMMUNICATION FOLLOW UP FOLLOW UP WITH FORMSTONE FITTER (REASON: POST TRIGGER POINT INJECTION BILATERAL LOW BACK) ELECTRONICALLY SIGNED BY MIROSLAVA QUESADA MD, MD ON 11/16/2020 AT 11:21 AM EDT DISCLAIMER : THIS IS A VISIT SUMMARY EXTRACTED FROM THE [employer] CHART. IT IS NOT A COPY OF THE [employer] PROGRESS NOTE. MONIQUE
== END ==
LOC: M PAIN 08:30
PROVIDERS: ATTEND Anesthesiology
DX: M79.18 Myalgia, other site (principal); Z86.59 Personal history of other mental and behavioral disorders; Z88.8 Allergy status to other drugs, medicaments and biological substances; Z79.899 Other long term (current) drug therapy
CPT/HCPCS: 20552; J3301

== ENCOUNTER → 2020-11-26 | Outpatient (CLI) | payer OTHER ==
--- NOTE | 2020-11-30 04:25 | ECWPNPC ---
PATIENT NAME: GORDY SRIVASTAVA : 1985 GENDER: FEMALE VISIT DATE: 11/26/2020 DISCHARGE DATE: 11/26/20 1006 VISIT LOCKED DATE TIME: PHYSICIAN: HERBERTH ERWIN RESOURCE: HERBERTH ERWIN REASON FOR APPOINTMENT 1. POST BILATERAL LOW BACK TRIGGER POINT INJECTIONS HISTORY OF PRESENT ILLNESS PAIN CENTER INTAKE QUESTIONS: DO YOU HAVE A HISTORY OF MRSA? :NO DO YOU TAKE A BLOOD THINNERS? :NO DO YOU HAVE ANY BLEEDING DISORDERS? :NO ANY NEW NUMBNESS OR WEAKNESS IN YOUR LEGS OR ARMS? :NO ANY PACEMAKER,DEFIBRILLATOR, OR DORSAL COLUMN STIMULATOR? :NO DO YOU HAVE ANY RASHES OR OPEN SORES? :NO ARE YOU ALLERGIC TO IV DYE? :NO ARE YOU DIABETIC? :NO ANY NEW PROBLEMS WITH YOUR MEDICATIONS? :NO HAVE YOU RECEIVED A VACCINE IN THE PAST 30 DAYS? :NO DO YOU PLAN TO RECEIVE A VACCINE IN THE NEXT 21 DAYS? :NO DO YOU NEED ANY PRESCRIPTION? :NO DO YOU TAKE ANY IMMUNOSUPPRESSIVE MEDICATIONS? :NO DO YOU HAVE ANY KIDNEY OR LIVER DISEASE? :NO IS THERE A CHANCE YOU COULD BE ? :NO ARE YOU BREAST FEEDING? :NO GENERAL: HPI 35-YEAR-OLD FEMALE IN FOR POST BILATERAL LOW BACK TRIGGER POINT INJECTION FOLLOW-UP. PATIENT FEELS HER PROCEDURE WAS UNSUCCESSFUL.PATIENT RATES HER PAIN AT AN 8 OUT OF 10 CURRENTLY AND DESCRIBES IT CONTINUOUS, SORE, ACHING, AND SHOOTING. PATIENT DOES ADMIT TO RADICULAR SYMPTOMS DOWN HER LEFT LEG.. -. FALL RISK SCREENING: SCREENING : NO FALLS REPORTED IN THE LAST YEAR. PAIN SCREENING: PATIENT HAS A COMPLAINT OF ACUTE OR CHRONIC PAIN :YES INTENSITY OF PAIN (SCALE OF 1 TO 10):8 WHAT DOES YOUR PAIN FEEL LIKE:CONTINOUS, SORE, ACHING, SHOOTING DURATION:CONTINOUS NURSING NOTE: -. CURRENT MEDICATIONS TAKING LEXAPRO 20 MG TABLET 1 TABLET ORALLY ONCE A DAY TAKING XANAX 0.5 MG TABLET 1 TABLET ORALLY ONCE DAILY NEEDED TAKING VITAMIN D (ERGOCALCIFEROL) 50 MCG (2000 UT) CAPSULE 1 CAPSULE ORALLY ONCE A DAY TAKING TIZANIDINE HCL 2 MG TABLET 1 TABLET NEEDED ORALLY BEFORE BEDTIME MAY REPEAT IN 4 HRS MDD 2 TAKING HYDROCODONE-ACETAMINOPHEN 5-325 MG TABLET 1 TABLET NEEDED ORALLY FOR PAIN EVERY 8 HRS MDD 3 NOT-TAKING AMOXICILLIN-POT CLAVULANATE 875-125 MG TABLET 1 TABLET ORALLY EVERY 12 HRS NOT-TAKING 27-1 MG TABLET 1 TABLET ORALLY ONCE A DAY MEDICATION LIST REVIEWED AND RECONCILED WITH THE PATIENT PAST MEDICAL HISTORY PANIC ATTACKS CROHNS DISEASE CHRONIC BACK PAIN ALLERGIES MUSCLE RELAXERS: FATIGUE - SIDE EFFECTS SURGICAL HISTORY PARTIAL DISCECTOMY 2007 SPINAL FUSION - L5-S1 2018 PARTIAL COLECTOMY 2010 FAMILY HISTORY FATHER: ALIVE MOTHER: ALIVE 1 SISTER(S) - HEALTHY. 1 SON(S) , 1 DAUGHTER(S) - HEALTHY. PT. DENIES FAMILY HX. HOSPITALIZATION/MAJOR DIAGNOSTIC PROCEDURE CHILDBIRTH REVIEW OF SYSTEMS CONSTITUTIONAL: ANY RECENT FEVER NO . CHILLS NO . WEIGHT CHANGE OF UNKNOWN REASONS NO . GASTROENTEROLOGY: NEW UNEXPLAINABLE CHANGES IN BOWEL CONTROL NO . CONSTIPATION NO . GENITOURINARY: ANY NEW CHANGE IN BLADDER CONTROL? NO . NEUROLOGY: NEW ONSET DIZZINESS OR NEUROLOGICAL CHANGES NOT MENTIONED NO . NEW NUMBNESS OR PAIN PATTERNS NOT MENTIONED AND PERTINENT TO TODAY'S VISIT NO . CARDIOLOGY: NEW CHEST PRESSURE NO . PATIENT DENIES NO . RESPIRATORY: UNEXPLAINABLE COUGH NO . NEW SHORTNESS OF BREATH NO . VITAL SIGNS WT 149 LBS, HT 60 IN, BMI 29.10 INDEX, BP 124/65 MM HG, HR 66 /MIN, RR 18 /MIN, OXYGEN SAT % 99, SAFE IN ENV? (Y/N) Y, REVIEWED BY: KG1. ASSESSMENTS OTHER CHRONIC PAIN - G89.29 (PRIMARY) INTERVERTEBRAL DISC DISORDER WITH RADICULOPATHY OF LUMBOSACRAL REGION - M51.17 TREATMENT OTHER CHRONIC PAIN PAIN PROCEDURE LOGDATE OF PROCEDURE11/12/20PROCEDURE:BILATERAL LOW BACK TRIGGER POINT INJECTIONSAMOUNT OF PRE SEDATEVALIUM 5MG, NORCO 5/325MGRESULT:UNSUCCESSFUL MEDICATION: PAIN VALIUM TAB 5MG ORALLY (DIAZEPAM) (ORDERED FOR 12/06/2020) MED: PAIN NORCO TABLET 5MG/325MG ORALLY HYDROCODONE/ACETAMINOPHEN (ORDERED FOR 12/06/2020) SALINE LOCK (ORDERED FOR 12/06/2020) NOTES: WENT OVER THE ENTIRE PROCEDURE WITH THE PATIENT AND ANSWERED QUESTIONS I DID SENT PRINTED MATERIAL VIA MAIL I WAS UNABLE TO PRINT WHILE SHE WAS HERE. PRE PROCEDURE PAPER WORK GIVEN TO PATIENT. INTERVERTEBRAL DISC DISORDER WITH RADICULOPATHY OF LUMBOSACRAL REGION NOTES: 35-YEAR-OLD FEMALE IN FOR POST TRIGGER POINT JUNCTION FOLLOW-UP. GIVEN PRESENTING SYMPTOMS AND RESULTS OF PHYSICAL EXAMINATION RECOMMEND CAUDAL EPIDURAL STEROID INJECTIONS WITH POSTPROCEDURAL FOLLOW-UP. PATIENT HAS EXPRESSED UNDERSTANDING OF AND WAS IN AGREEMENT WITH TREATMENT PLAN. GIVEN TIME TO ASK QUESTIONS AND EXPRESS CONCERNS. ISTOP REGISTRY REVIEWED AND DEMONSTRATES COMPLLIANCE. (REF # [id number] ) BRINGS IN MEDICATIONS WHICH IS APPROPRIATE FOR WHAT WAS DISPENSED. RECENT URINE TOXICOLOGY REVIEWED. NO UNAUTHORIZED MEDICATIONS. NO ILLICIT SUBSTANCES AND PRESCRIBED MEDICATIONS WERE PRESENT. PROCEDURE CODES FA211 ESTABILISHED PATIENT [facility] FACILITY CHARGE DISPOSITION & COMMUNICATION FOLLOW UP POST PROCEDURE (REASON: CAUDAL EPIDURAL ) ELECTRONICALLY SIGNED BY BOUCHRA LEACH ON 11/29/2020 AT 09:55 AM EDT DISCLAIMER : THIS IS A VISIT SUMMARY EXTRACTED FROM THE [employer] CHART. IT IS NOT A COPY OF THE [employer] PROGRESS NOTE. MONIQUE
== END ==
LOC: M PAIN 09:30
PROVIDERS: ATTEND Family Medicine
DX: M51.17 Intervertebral disc disorders with radiculopathy, lumbosacral region (principal); G89.29 Other chronic pain; Z86.59 Personal history of other mental and behavioral disorders; Z88.8 Allergy status to other drugs, medicaments and biological substances; Z79.899 Other long term (current) drug therapy

== ENCOUNTER → 2020-12-10 | Outpatient (CLI) | payer OTHER | LOC: M LABSMTC 09:40 | PROVIDERS: ATTEND Anesthesiology | DX: Z20.822 Contact with and (suspected) exposure to COVID-19 (principal) ==

== ENCOUNTER → 2020-12-15 | Outpatient (CLI) | payer OTHER ==
[~2020-12-15] MED LIST changes: -BUPIVACAINE HCL 0.25% 10ML VIAL As Ordered ONE; -BUPIVACAINE HCL 0.25% 30ML VIAL As Ordered ONE; +ISOVUE-M 300 61% 15ML VIAL As Ordered ONE; +LIDOCAINE 1% SDV 30ML VIAL As Ordered ONE; -TRIAMCINOLONE ACETONIDE SUSP 40 MG/ML VIAL (J3301) As Ordered ONE; +methylPREDNISolone SUSP 40MG/ML 1ML VIAL (DEPO MEDROL) As Ordered ONE
--- NOTE | 2020-12-15 14:01 | REP ---
INDICATION: CAUDAL EPIDURAL. COMPARISON: None. TECHNIQUE: For C-arm views sacrum and coccyx. FINDINGS: A needle is seen along the posterior aspect of the sacrococcygeal region. IMPRESSION: 23 seconds fluoroscopy time was utilized. <Electronically signed by Ki Cheek > 12/15/20 [id number]
--- NOTE | 2020-12-17 00:53 | ECWPNPC ---
PATIENT NAME: GORDY SRIVASTAVA : 1985 GENDER: FEMALE VISIT DATE: 12/15/2020 DISCHARGE DATE: 12/15/20 1152 VISIT LOCKED DATE TIME: PHYSICIAN: MIROSLAVA QUESADA MD RESOURCE: MIROSLAVA QUESADA MD REASON FOR APPOINTMENT 1. CAUDAL EPIDURAL STEROID INJECTION HISTORY OF PRESENT ILLNESS FALL RISK SCREENING: SCREENING : NO FALLS REPORTED IN THE LAST YEAR. PAIN SCREENING: PATIENT HAS A COMPLAINT OF ACUTE OR CHRONIC PAIN :YES LOCATION OF PAIN:LOW BACK INTENSITY OF PAIN (SCALE OF 1 TO 10):4 4-9/10 WHAT DOES YOUR PAIN FEEL LIKE:ACHING, SHARP DURATION:CONTINOUS, AWAKENS FROM SLEEP PAIN IS INCREASED BY:ACTIVITIES, PROLONGED STANDING PAIN IS DECREASED BY:USE OF PAIN MEDICATIONS PLAN/GOALS/TREATMENT/INTERVENTION/FOLLOW UP:SEE PLAN NURSING NOTE: -. PAIN CENTER INTAKE QUESTIONS: DO YOU HAVE A HISTORY OF MRSA? :NO DO YOU TAKE A BLOOD THINNERS? :NO DO YOU HAVE ANY BLEEDING DISORDERS? :NO ANY NEW NUMBNESS OR WEAKNESS IN YOUR LEGS OR ARMS? :NO ANY PACEMAKER,DEFIBRILLATOR, OR DORSAL COLUMN STIMULATOR? :NO DO YOU HAVE ANY RASHES OR OPEN SORES? :NO ARE YOU ALLERGIC TO IV DYE? :NO ARE YOU DIABETIC? :NO ANY NEW PROBLEMS WITH YOUR MEDICATIONS? :NO HAVE YOU RECEIVED A VACCINE IN THE PAST 30 DAYS? :NO DO YOU PLAN TO RECEIVE A VACCINE IN THE NEXT 21 DAYS? :NO DO YOU TAKE ANY IMMUNOSUPPRESSIVE MEDICATIONS? :NO ANY HISTORY OF SEIZURES? :NO ANY HISTORY OF CARDIAC ISSUES OR EVENTS? :NO DO YOU HAVE ANY KIDNEY OR LIVER DISEASE? :NO DO YOU HAVE SLEEP APNEA? :NO ANY RECENT HEAD INJURY? :NO DO YOU HAVE ANY NEW INFECTIONS? :NO IS THERE A CHANCE YOU COULD BE ? :NO ARE YOU BREAST FEEDING? :NO WHEN DID YOU LAST EAT? : -LAST NIGHT FOR DINNER WHEN DID YOU LAST DRINK? : -0630 THIS MORNING WHAT DID YOU LAST DRINK? : -WATER NAME OF PERSON DRIVING YOU HOME? : MOTHER DO YOU HAVE ANY OTHER QUESTIONS OR CONCERNS? : NO GENERAL: -. CURRENT MEDICATIONS TAKING LEXAPRO 20 MG TABLET 1 TABLET ORALLY ONCE A DAY TAKING XANAX 0.5 MG TABLET 1 TABLET ORALLY ONCE DAILY NEEDED TAKING VITAMIN D (ERGOCALCIFEROL) 50 MCG (1999 UT) CAPSULE 1 CAPSULE ORALLY ONCE A DAY TAKING TIZANIDINE HCL 2 MG TABLET 1 TABLET NEEDED ORALLY BEFORE BEDTIME MAY REPEAT IN 4 HRS MDD 2 TAKING HYDROCODONE-ACETAMINOPHEN 5-325 MG TABLET 1 TABLET NEEDED ORALLY FOR PAIN EVERY 8 HRS MDD 3 NOT-TAKING AMOXICILLIN-POT CLAVULANATE 875-125 MG TABLET 1 TABLET ORALLY EVERY 12 HRS NOT-TAKING 27-1 MG TABLET 1 TABLET ORALLY ONCE A DAY PAST MEDICAL HISTORY PANIC ATTACKS CROHNS DISEASE CHRONIC BACK PAIN ALLERGIES MUSCLE RELAXERS: FATIGUE - SIDE EFFECTS SOCIAL HISTORY GENERAL: TOBACCO USE ARE YOU A:NONSMOKER LATEX QUESTIONNAIRE LATEX ALLERGY : HAVE YOU EVER DEVELOPED ANY TYPE OF REACTION AFTER HANDLING LATEX PRODUCTS SUCH RUBBER GLOVES, CONDOMS, DIAPHRAGMS, BALLOONS, SOCKS, OR UNDERWEAR?NO LATEX ALLERGY : HAVE YOU EVER DEVELOPED ANY TYPE OF REACTION DURING OR AFTER DENTAL APPOINTMENT, VAGINAL/RECTAL EXAMINATION, SURGICAL PROCEDURE, OR ANY OTHER EXPOSURE?NO LATEX RISK : HAVE YOU EVER HAD ANY DIFFICULTY BREATHING OR HIVES AFTER EATING OR HANDLING ANY FRUITS, OR VEGETABLES; SUCH KIWI, BANANAS, STONE FRUITS, OR CHESTNUTSNO LATEX RISK : DO YOU HAVE A PREVIOUS PERSONAL HISTORY OF MORE THAN NINE SURGERIES, SPINA BIFIDA, OR REPEATED CATHERIZATIONS? NO LATEX RISK : ARE YOU FREQUENTLY EXPOSED TO LATEX PRODUCTS IN YOUR OCCUPATION?NO DATE ASKED : 12/14/2020 ALCOHOL USE: YES, VERY LITTLE. RECREATIONAL DRUG USE DRUG USE?NO CAFFEINE CAFFEINE USE?YES 1 CUP DAILY LANGUAGE LANGUAGES SPOKEN:[place] EDUCATION LEVEL OF EDUCATION:FINISHED HIGH SCHOOL LEARNING BARRIERS / SPECIAL NEEDS CHANGE FROM LAST VISIT?NO BARRIERS TO LEARNING?NO HEARING IMPAIRED?NO VISION IMPAIRED?NO COGNITIVELY IMPAIRED?NO READINESS TO LEARN?YES LEARNING PREFERENCES?NO LEARNING CAPABILITIES PRESENT?YES EMOTIONAL BARRIERS?NO SPECIAL DEVICES?NO SEISMIC PROSPECTING OBSERVER HELPER NEEDED?NO OCCUPATION: STAY AT HOME MOTHER. - HAS THE PATIENT BEEN EDUCATED REGARDING HIS/HER PLAN OF CARE?YES HAS THE PATIENT BEEN EDUCATED REGARDING PAIN, THE RISK FOR PAIN, THE IMPORTANCE OF EFFECTIVE PAIN MANAGEMENT, AND THE PAIN ASSESSMENT PROCESS?YES ADVANCE DIRECTIVE ADVANCE DIRECTIVE DISCUSSED WITH PATIENT:YES PT STATES THAT SHE DOES NOT HAVE HCP, PATIENT GIVEN HEALTH CARE PROXY INFO PACKET TO TAKE HOME. 03/04/2020 - DM PT. DENIES ALCOHOL USE. VITAL SIGNS WT 144.8 LBS, WT-KG 65.68 KG, HT 60 IN, BMI 28.28 INDEX, BP 147/75 MM HG, HR 65 /MIN, RR 16 /MIN, TEMP 96.6 F, OXYGEN SAT % 100%, SAFE IN ENV? (Y/N) YES, NA INITIALS SC 09:21, REVIEWED BY: TROY ANDUJAR. EXAMINATION GENERAL: A HISTORY AND PHYSICAL EXAM ON THE PATIENT WAS DONE ON 11/26/2020 (DATE OF ORIGINAL ASSESSMENT) IN PREPARATION OF SURGERY/PROCEDURE. I HAVE NOW REASSESSED THIS PATIENT'S HEALTH STATUS AND PERFORMED AN UPDATED EXAM TODAY. ALL CHANGES IN THE PATIENT'S HISTORY, PHYSICAL EXAM, PRE-EXISTING CONDITONS, AND INDICATIONS/CONTRAINDICATIONS TO THE PLANNED PROCEDURE AND ANESTHESIA ARE DOCUMENTED AND EVALUATED BELOW. I ATTEST TO THE ADEQUACY AND APPROPRIATENESS OF MY ASSESSMENT, AND CONFIRM THE NECESSITY FOR THE PLANNED PROCEDURE. THE PATIENT IS ALERT, ORIENTED TIMES THREE AND COOPERATIVE. LUNGS ARE CLEAR TO AUSCULTATION. HEART SHOWS REGULAR RHYTHM, NO MURMURS AND NO GALLOPS. ASSESSMENTS LUMBAR POST-LAMINECTOMY SYNDROME - M96.1 (PRIMARY) TREATMENT OTHERS NOTES: 12/14/20 PAT COMPLETED. Fernando DELCID LITHOGRAPHIC PRESS OPERATOR APPRENTICE. PROCEDURES PAIN NURSING RECORD PROCEDURE IN ROOM 1020 1115, PHYSICIAN IN ROOM 1041, START 1119, FINISH 1124, PHYSICIAN OUT OF ROOM 1128, OUT OF ROOM 1135, ECG NORMAL SINUS, PATIENT SHIELDED YES, SAFETY STRAP YES, PREP BETADINE, DRESSING TEGADERM LOC: 1. ALERT, ORIENTED GAGE OSMAN 12/15/2020 10:34:08 AM > RESP: 1. REGULAR, NO DYSPNEA GAGE OSMAN 12/15/2020 10:34:17 AM > COLOR: 1. PINK GAGE OSMAN 12/15/2020 10:34:27 AM > SKIN: 1. WARM, DRY GAGE OSMAN 12/15/2020 10:34:32 AM > POSITION: 1. PRONE GAGE OSMAN 12/15/2020 10:34:37 AM > VITALS: 1005 P68 [id number] 115/62 R18 AW LEÓN NEGRETE 12/15/2020 10:24:49 AM > HR 69 BP 111/69 02 100% 1020 124/67 64 100% RA 18 RESP TROY ANDUJAR 1045 126/64 62 100% ON RA 16 RESP TROY ANDUJAR 1100 114/64 57 100% ON RA 18 RESP KGULLO RN 1115 130/70 100% ON RA 16 RESP TROY RN POST PAIN 0 VITALS 124/55 77 100% ON RA 16 RESP NOTES C ARM NEEDED TO BE SHUT DOWN DUT TO IT "FREEZING" ANDREW URENA HAS CALLED FOR ONE TO BE BROUGHT UP AND THIS C ARM SILL NEED TO BE SERVICED CHARGE NURSE Tere DELUNA RN A=MADE AWARE NEW C ARM BROUGHT AND SET UP TOTAL FLURO TIME: 32 SECONDS NOTES FROM DOCTOR IF PATIENT DOES NOT GET LONG LAST EFFECT CONSIDER A CAUDAL WITH A CATHETER AND THEN IF NOT EFFECTIVE CONSIDER A TRANSFORAMINAL. ALSO WE MAY ALWAYS DO SACROILLIAC INJECTIONS. COMPLETION OF PROCEDURE APPOINTMENT: POST PAIN 0, DRESSING SITE DRY AND INTACT, IV DISCONTINUED, SITE CLEAR, CATHETER INTACT, GAIT STEADY, TEACHING COMPLETED, PATIENT ACKNOWLEDGES UNDERSTANDING YES, PROCEDURE APPOINTMENT COMPLETED AT 1158 PN CAUDAL EPIDURALS PRE PROCEDURE DIAGNOSIS LUMBAR POST LAMINECTOMY PAIN SYNDROME POST PROCEDURE DIAGNOSIS LUMBAR POST LAMINECTOMY PAIN SYNDROME PROCEDURE CAUDAL EPIDURAL STEROID INJECTION SURGEON DR. MIROSLAVA QUESADA BOTTOM FINISHER NONE ANESTHESIA LOCAL PRE PROCEDURE NOTE THE PATIENT HAS HISTORY OF CHRONIC LOW BACK PAIN. I EVALUATED THE PATIENT AND REVIEWED THE CHART. I WENT OVER THE RISKS, ALTERNATIVES, AND BENEFITS ASSOCIATED WITH THIS PROCEDURE. THE PATIENT WOULD LIKE TO PROCEED AND GIVE CONSENT TO PERFORMED THE PROCEDURE. THE PATIENT DENIES UNEXPLAINABLE WEIGHT LOSS, FEVER, CHILLS, OR NEW CHANGES IN URINARY OR BOWEL CONTROL. THE PATIENT IS COVID-19 NEGATIVE DESCRIPTION OF PROCEDURE THE PATIENT WAS BROUGHT TO THE PROCEDURE ROOM AND PLACED IN THE PRONE POSITION. THE LUMBOSACRAL AREA WAS CLEANED WITH BETADINE SOLUTION AND DRAPED ASEPTICALLY. THE PROCEDURE WAS DONE UNDER STERILE CONDITIONS. A TIMEOUT WAS PERFORMED WHERE THE CONSENTED SITE WAS VERIFIED WITH EVERYONE IN THE ROOM. UNDER FLUOROSCOPIC GUIDANCE, THE TARGET POINT WAS SELECTED AT THE EPIDURAL SPACE BELOW THE SACROCOCCYGEAL LIGAMENT. I CONFIRMED AGAIN THE SITE OF TARGET. LIDOCAINE 0.5% WAS USE TO NUMB THE SKIN AND THE SUBCUTANEOUS TISSUE BELOW IT. SPINAL NEEDLE, 22-GAUGE 3.5 INCH, WAS ADVANCED UNDER FLUOROSCOPIC GUIDANCE AND FOLLOWING PATIENT FEEDBACK UNTIL THE EPIDURAL SPACE WAS REACHED BY THE LOSS OF RESISTANCE TECHNIQUE. ISOVUE M DYE 30%, 0.25 ML, WAS INJECTED SHOWING ADEQUATE SPREAD OF THE DYE. THEN, A SOLUTION OF 6 ML OF NORMAL SALINE WITH DEPO-MEDROL 40 MG WAS INJECTED SLOWLY FOLLOWING THE PATIENT FEEDBACK. THERE WAS NO EVIDENCE OF BLOOD, PARESTHESIA OR CEREBROSPINAL FLUID DURING THE PROCEDURE. THE PATIENT WAS SENT TO THE RECOVERY ROOM. THE PATIENT WAS MOVING THE EXTREMITIES AND DOING WELL. THERE WAS NO COMPLICATION DURING THE PROCEDURE. ESTIMATED BLOOD LOSS LESS THAN 5 ML. FLUOROSCOPY TIME WAS 32 SECONDS POST PROCEDURE NOTE IF THE PATIENT DOES NOT GET LONG LASTING RELEIF, CONSIDER A CAUDAL WITH A CATHETER. DEPENDING ON THE RESULTS OF THAT, CONSDIER A TRANSFORAMINAL OR SACOILIAC JOINT BLOCKS. THE PATIENT WILL BE SEEN IN A FOLLOW UP IN THE NEXT FEW WEEKS. I AM LOOKING FOR LONG LASTING RELIEF FOR THE PATIENT WITH THIS INTERVENTION. INSTRUCTIONS WERE GIVEN, QUESTIONS WERE ANSWERED, AND THE PATIENT EXPRESSED UNDERSTANDING AND AGREES WITH THE PLAN. I, NOLA CABA, DOCUMENTED THE ABOVE INFORMATION ACTING A SCRIBE FOR DR. QUESADA. I HAVE REVIEWED THE ABOVE DOCUMENT, WRITTEN BY NOLA CABA, METEOROLOGICAL AIDE, AND I VERIFY THAT IT IS [facility] FLUORO GUIDE SPINE INJECTION (PAIN)[id number] PROCEDURE CODES 37998 LUMBAR/SACRAL W/ IMAGING DISPOSITION & COMMUNICATION FOLLOW UP FOLLOW UP WITH ENVIRONMENTAL PROTECTION INSPECTOR (REASON: POST CAUDAL EPIDURAL STEROID INJECTION) ELECTRONICALLY SIGNED BY MIROSLAVA QUESADA MD, MD ON 12/16/2020 AT 12:33 PM EDT DISCLAIMER : THIS IS A VISIT SUMMARY EXTRACTED FROM THE [employer] CHART. IT IS NOT A COPY OF THE [employer] PROGRESS NOTE. MONIQUE
== END ==
LOC: M PAIN 09:20
PROVIDERS: ATTEND Anesthesiology
DX: M96.1 Postlaminectomy syndrome, not elsewhere classified (principal); Z86.59 Personal history of other mental and behavioral disorders; Z88.8 Allergy status to other drugs, medicaments and biological substances; Z79.899 Other long term (current) drug therapy
CPT/HCPCS: 62323; J1030; Q9967

== ENCOUNTER → 2020-12-30 | Outpatient (CLI) | payer OTHER ==
--- NOTE | 2021-01-09 23:41 | ECWPNPC ---
PATIENT NAME: GORDY SRIVASTAVA : 1985 GENDER: FEMALE VISIT DATE: 12/30/2020 DISCHARGE DATE: 12/30/20 1453 VISIT LOCKED DATE TIME: PHYSICIAN: MIROSLAVA QUESADA MD RESOURCE: MIROSLAVA QUESADA MD REASON FOR APPOINTMENT 1. POST CAUDAL EPIDURAL STEROID INJECTION HISTORY OF PRESENT ILLNESS GENERAL: 35-YEAR-OLD FEMALE PATIENT WITH A HISTORY OF CHRONIC LOW BACK PAIN. THE PATIENT DESCRIBES THE PAIN ACHING AND SORE WITH A PAIN SCORE RANGING FROM 6-10/10 AT THE LOWER BACK. SHE HAS A HISTORY OF A BACK SURGERY. WE DID A CAUDAL BLOCK THAT DID NOT HELP HER. THIS IS AFFECTING HER ABILITY TO PERFORM ACTIVITIES SUCH CLEANING HER HOUSE AND GROCERY SHOPPING. SHE IS MANAGING THE PAIN WITH MAINLY HYDROCODONE AT THE MOMENT, SHE ALSO USES TIZANIDINE. SHE FEELS THAT THESE MEDICATIONS HELP HER TO AT LEAST PERFORM CERTAIN ACTIVITES AND THAT IS THE WAY THAT SHE CAN FUNCTION. FALL RISK SCREENING: SCREENING : NO FALLS REPORTED IN THE LAST YEAR. PAIN SCREENING: PATIENT HAS A COMPLAINT OF ACUTE OR CHRONIC PAIN :YES LOCATION OF PAIN:LOW BACK INTENSITY OF PAIN (SCALE OF 1 TO 10):7 WHAT DOES YOUR PAIN FEEL LIKE:ACHING, SORE DURATION:CONTINOUS, CONSTANT, STEADY PAIN IS INCREASED BY:ACTIVITIES, PROLONGED STANDING PAIN IS DECREASED BY:USE OF PAIN MEDICATIONS NURSING NOTE: -. PAIN CENTER INTAKE QUESTIONS: DO YOU HAVE A HISTORY OF MRSA? :NO DO YOU TAKE A BLOOD THINNERS? :NO DO YOU HAVE ANY BLEEDING DISORDERS? :NO ANY NEW NUMBNESS OR WEAKNESS IN YOUR LEGS OR ARMS? :NO ANY PACEMAKER,DEFIBRILLATOR, OR DORSAL COLUMN STIMULATOR? :NO DO YOU HAVE ANY RASHES OR OPEN SORES? :NO ARE YOU ALLERGIC TO IV DYE? :NO ARE YOU DIABETIC? :NO ANY NEW PROBLEMS WITH YOUR MEDICATIONS? :NO HAVE YOU RECEIVED A VACCINE IN THE PAST 30 DAYS? :NO DO YOU PLAN TO RECEIVE A VACCINE IN THE NEXT 21 DAYS? :NO DO YOU NEED ANY PRESCRIPTION? :NO DO YOU TAKE ANY IMMUNOSUPPRESSIVE MEDICATIONS? :NO DO YOU HAVE ANY KIDNEY OR LIVER DISEASE? :NO IS THERE A CHANCE YOU COULD BE ? :NO ARE YOU BREAST FEEDING? :NO CURRENT MEDICATIONS TAKING LEXAPRO 20 MG TABLET 1 TABLET ORALLY ONCE A DAY TAKING XANAX 0.5 MG TABLET 1 TABLET ORALLY ONCE DAILY NEEDED TAKING VITAMIN D (ERGOCALCIFEROL) 50 MCG (1999 UT) CAPSULE 1 CAPSULE ORALLY ONCE A DAY TAKING TIZANIDINE HCL 2 MG TABLET 1 TABLET NEEDED ORALLY BEFORE BEDTIME MAY REPEAT IN 4 HRS MDD 2 TAKING HYDROCODONE-ACETAMINOPHEN 5-325 MG TABLET 1 TABLET NEEDED ORALLY FOR PAIN EVERY 8 HRS MDD 3 NOT-TAKING AMOXICILLIN-POT CLAVULANATE 875-125 MG TABLET 1 TABLET ORALLY EVERY 12 HRS NOT-TAKING 27-1 MG TABLET 1 TABLET ORALLY ONCE A DAY MEDICATION LIST REVIEWED AND RECONCILED WITH THE PATIENT PAST MEDICAL HISTORY PANIC ATTACKS CROHNS DISEASE CHRONIC BACK PAIN ALLERGIES MUSCLE RELAXERS: FATIGUE - SIDE EFFECTS SOCIAL HISTORY GENERAL: TOBACCO USE ARE YOU A:NONSMOKER LATEX QUESTIONNAIRE LATEX ALLERGY : HAVE YOU EVER DEVELOPED ANY TYPE OF REACTION AFTER HANDLING LATEX PRODUCTS SUCH RUBBER GLOVES, CONDOMS, DIAPHRAGMS, BALLOONS, SOCKS, OR UNDERWEAR?NO LATEX ALLERGY : HAVE YOU EVER DEVELOPED ANY TYPE OF REACTION DURING OR AFTER DENTAL APPOINTMENT, VAGINAL/RECTAL EXAMINATION, SURGICAL PROCEDURE, OR ANY OTHER EXPOSURE?NO LATEX RISK : HAVE YOU EVER HAD ANY DIFFICULTY BREATHING OR HIVES AFTER EATING OR HANDLING ANY FRUITS, OR VEGETABLES; SUCH KIWI, BANANAS, STONE FRUITS, OR CHESTNUTSNO LATEX RISK : DO YOU HAVE A PREVIOUS PERSONAL HISTORY OF MORE THAN NINE SURGERIES, SPINA BIFIDA, OR REPEATED CATHERIZATIONS? NO LATEX RISK : ARE YOU FREQUENTLY EXPOSED TO LATEX PRODUCTS IN YOUR OCCUPATION?NO DATE ASKED : 12/14/2020 ALCOHOL USE: YES, VERY LITTLE. RECREATIONAL DRUG USE DRUG USE?NO CAFFEINE CAFFEINE USE?YES 1 CUP DAILY LANGUAGE LANGUAGES SPOKEN:TAMAZIGHT EDUCATION LEVEL OF EDUCATION:FINISHED HIGH SCHOOL LEARNING BARRIERS / SPECIAL NEEDS CHANGE FROM LAST VISIT?NO BARRIERS TO LEARNING?NO HEARING IMPAIRED?NO VISION IMPAIRED?NO COGNITIVELY IMPAIRED?NO READINESS TO LEARN?YES LEARNING PREFERENCES?NO LEARNING CAPABILITIES PRESENT?YES EMOTIONAL BARRIERS?NO SPECIAL DEVICES?NO MARKETING SEGMENT MANAGER NEEDED?NO OCCUPATION: STAY AT HOME MOTHER. - HAS THE PATIENT BEEN EDUCATED REGARDING HIS/HER PLAN OF CARE?YES HAS THE PATIENT BEEN EDUCATED REGARDING PAIN, THE RISK FOR PAIN, THE IMPORTANCE OF EFFECTIVE PAIN MANAGEMENT, AND THE PAIN ASSESSMENT PROCESS?YES ADVANCE DIRECTIVE ADVANCE DIRECTIVE DISCUSSED WITH PATIENT:YES PT STATES THAT SHE DOES NOT HAVE HCP, PATIENT GIVEN HEALTH CARE PROXY INFO PACKET TO TAKE HOME. 03/04/2020 - DM PT. DENIES ALCOHOL USE. REVIEW OF SYSTEMS CONSTITUTIONAL: ANY RECENT FEVER NO . CHILLS NO . WEIGHT CHANGE OF UNKNOWN REASONS NO . GASTROENTEROLOGY: NEW UNEXPLAINABLE CHANGES IN BOWEL CONTROL NO . CONSTIPATION NO . GENITOURINARY: ANY NEW CHANGE IN BLADDER CONTROL? NO . NEUROLOGY: NEW ONSET DIZZINESS OR NEUROLOGICAL CHANGES NOT MENTIONED NO . NEW NUMBNESS OR PAIN PATTERNS NOT MENTIONED AND PERTINENT TO TODAY'S VISIT NO . CARDIOLOGY: NEW CHEST PRESSURE NO . PATIENT DENIES NO . RESPIRATORY: UNEXPLAINABLE COUGH NO . NEW SHORTNESS OF BREATH NO . VITAL SIGNS WT 144.6 LBS, WT-KG 65.59 KG, HT 60 IN, BMI 28.24 INDEX, BP 116/61 MM HG, HR 91 /MIN, RR 18 /MIN, TEMP 98.0 F, OXYGEN SAT % 98%, SAFE IN ENV? (Y/N) YES, NA INITIALS AW 1321, REVIEWED BY: [facility]. ALEX RN. EXAMINATION GENERAL: THE PATIENT IS ALERT, ORIENTED TIMES THREE AND COOPERATIVE. THERE IS SEVERE TENDERNESS AT THE FACET JOINT ARE OF L4-L5, L5-S1. I SAW HER UNDER X-RAY AND IDENTIFIED THAT IS WHERE THE PAIN IS COMING FROM. THERE IS ALSO TENDERNESS AT THE SACROILIAC JOINTS ON BOTH SIDE. MRI OF THE LUMBOSACRAL SPINE DATED 09/24/2020 SHOWS THE FUSION AT L5-S1. 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 SRIVASTAVA. HER PAIN IS MAINLY COMING FROM HER FUSION AND THE FACET JOINTS AROUND IT. WE CAN CONSIDER DOING BILATERAL DIAGNOSTIC TEST L4-L5, L5-S1 #1 OR WE CAN CONSIDER BILATERAL SACROILIAC JOINT BLOCK. SINCE HER MAIN PAIN IS COMING FROM HER FUSION, MY ADVISE WOULD BE TO DO A BILATERAL DIAGNOSTIC FACET BLOCK L4-L5, L5-S1 #1 TO CONSIDER RADIOFREQUENCY. I EXPLAINED TO GORDY THAT WE HAVE TO DON. 2 DIAGNOSTIC TEST AND IF THE PAIN GOES DOWN TWICE WE CAN CONSIDER RADIOFREQUENCY. UNFORTUNATELY, THE HARDWARE WILL MAKE THE PROCEDURE DIFFICULT IN TERMS OF THE RADIOFREQUENCY SO I CANNOT GUARANTEE RESULTS. IN TERMS OF THE SACROILIACS, WE CAN DO SACROILIAC JOINT BLOCKS WHICH IS NOT DIFFICULT AND WILL PROVIDE HER WITH SOME RELIEF BUT I FEEL THAT THE PAIN IN THE FACET JOINTS WILL CONTINUE. SHE IS USING MEDICATION MANAGEMENT FOR OVER A YEAR. SHE HAS BEEN COMPLIANT WITH THE USE OF THE MEDICATIONS. URINE TOX DONE ON 09/09/2020 SHOWS CONCORDANT RESULTS. SHE DENIES THE USE OF [place] AND ILLEGAL SUBSTANCES. SHE USES THE MEDICATIONS TO CONTROL THE PAIN. I HAD A LONG CONVERSATION WITH GORDY ABOUT SPREADING THE CARE TO THE PRIMARY CARE SO SHE WILL SPEAK WITH HER PRIMARY TO SEE IF HE WILL CONTINUE PRESCRIBING THE MEDICATIONS. I WAS GOING TO SEND A DOCTOR TO DOCTOR AGREEMENT. I LOOKED IN THE CHART AND IT WAS NOT AVAILABLE SO FOR NOW I AM NOT GOING TO SEND IT AND SHE WILL JUST TALK WITH HIM. SHE IS GOING TO THINK ABOUT DOING THE INTERVENTIONS. I EXPLAINED TO HER THAT WE HAVE A YEAR AND WE CAN SEE HER. I ALSO EXPLAINED TO HER THAT IF HER PRIMARY TAKES OVER THE MEDICATIONS AND HAS ANY QUESTIONS, WE CAN SEE HER WITHIN THE YEAR WITHOUT A NEW REFERRAL. SHE WILL CALL US IF SHE WANTS AN INJECTION DONE. IF SHE DOES, WE WILL SEE HER QUICK FOR A QUICK FOLLOW UP. THE PATIENT REPORTS UNDERSTANDING AND AGREES WITH THE PLAN. I, NOLA CABA, DOCUMENTED THE ABOVE INFORMATION ACTING A SCRIBE FOR DR. QUESADA. I HAVE REVIEWED THE ABOVE DOCUMENT, WRITTEN BY NOLA CABA, EVP CHIEF EXPLORATION OFFICER, AND I VERIFY THAT IT IS ACCURATE. VISIT CODES PROCEDURE CODES FA211 ESTABILISHED PATIENT [facility] CHARGE [id number] OFFICE/OUTPATIENT VISIT EST DISPOSITION & COMMUNICATION FOLLOW UP CALL NEEDED (PSV) (REASON: CONSIDER INJECTION) ELECTRONICALLY SIGNED BY MIROSLAVA QUESADA MD, MD ON 01/09/2021 AT 07:18 PM EDT DISCLAIMER : THIS IS A VISIT SUMMARY EXTRACTED FROM THE [facility] CHART. IT IS NOT A COPY OF THE [facility] PROGRESS NOTE. MONIQUE
== END ==
LOC: M PAIN 13:15
PROVIDERS: ATTEND Anesthesiology
DX: M47.816 Spondylosis without myelopathy or radiculopathy, lumbar region (principal); M96.1 Postlaminectomy syndrome, not elsewhere classified; M53.3 Sacrococcygeal disorders, not elsewhere classified; Z86.59 Personal history of other mental and behavioral disorders; Z88.8 Allergy status to other drugs, medicaments and biological substances; Z79.899 Other long term (current) drug therapy

== ENCOUNTER → 2021-02-28 | Outpatient (REF) | payer OTHER | LOC: M LAB REF 16:58 | PROVIDERS: ATTEND Physician Assistant | DX: N39.0 Urinary tract infection, site not specified (principal) ==